=== PATIENT | female | born 1945 | race Caucasian/White ===

== ENCOUNTER → 2023-05-27 | Outpatient (CLI) | payer BC ==
[2023-05-27 13:03] LABS: INR 0.9 (<1.2); Partial Thromboplastin Time 24.9 sec (22.0-30.0)
[2023-05-27 16:53] LABS: HCT 43.2 % (37.2-46.3); HGB 13.9 d/dL (12.0-15.0); MCH 29.4 pg (27.0-32.0); MCHC 32.2 d/dL (32.0-37.0); MCV 91.3 FL (80.0-97.0); Mean Platelet Volume 9.6 FL (9.5-12.2); NRBC Per 100 WBC 0 X 10*3/uL (0.00-0.01); Platelet Count 203 X 10*3/uL (140-440); RBC 4.73 X 10*6/uL (4.10-5.20); RDW 13.6 % (11.5-14.5); WBC 11.17 X 10*3/uL (4.50-10.00)
[2023-05-27 17:11] LABS: ALT 21 U/L (8-44); AST 22 U/L (13-35); Albumin 4.5 d/dL (3.8-4.9); Albumin/Globulin Ratio 1.88 Ratio (1.60-3.17); Alkaline Phosphatase 76 U/L (41-126); Blood Urea Nitrogen 20.9 mg/dL (9.0-27.0); Calcium 9.6 mg/dL (8.7-10.3); Carbon Dioxide 24.7 mmol/L (21.6-31.8); Chloride 104 mmol/L (96-109); Globulin 2.4 d/dL (1.6-3.3); Glucose 83 mg/dL (70-110); Potassium 4.3 mmol/L (3.5-5.5); Sodium 141 mmol/L (135-145); Total Bilirubin 0.8 mg/dL (0.3-1.2); Total Protein 6.9 d/dL (6.2-8.2)
[2023-05-27 17:50] LABS: Appearance,Urine Clear (Clear); Bilirubin,Urine Negative (Negative); Blood,Urine Negative (Negative); Color,Urine Yellow (Yellow); Ketones,Urine Negative (Negative); Nitrite,Urine Negative (Negative); Specific Gravity,Urine 1.018 (1.001-1.030)
== END | disposition home or self-care (01) ==
LOC: LABPAT 11:38
PROVIDERS: ATTEND Orthopaedic Surgery Sports Medicine
DX: Z01.818 Encounter for other preprocedural examination (principal); M19.012 Primary osteoarthritis, left shoulder; R94.31 Abnormal electrocardiogram [ECG] [EKG]
CPT/HCPCS: 80053; 81003; 85027; 85610; 85730; 87070; 93005

== ENCOUNTER 2023-06-03 05:36 | Day surgery (SDC) | payer BC ==
[~2023-06-03 05:36] MED LIST: ACETAMINOPHEN TAB 500 MG TAB PO PRN; ONDANSETRON 4 MG/2 ML VIAL IVP PRN; Pre Op ABX Message 1 EACH MISC MISCELLANE ONE; TRANEXAMIC 1,000 MG/100ML-NACL 1,000 MG in SALINE 1 100ML.BAG IVPB PRN
[2023-06-03] MEDS ORDERED: ONDANSETRON 4 MG/2 ML VIAL IVP ONE ×2 (05:50→06:51)
[2023-06-03] MEDS ORDERED: DEXAMETHASONE SOD PHOSPHATE 4 MG/ML 1 ML VIAL IV ONE (05:50)
[2023-06-03] MEDS ORDERED: LACTATED RINGERS 1,000 ML IV ONE (05:55)
[2023-06-03] MEDS ORDERED: DEXAMETHASONE SOD PHOSPHATE 4 MG/ML 1 ML VIAL IVP ONE (06:51)
[2023-06-03] MEDS ORDERED: HYDROmorphone 0.5 MG/0.5 ML SYRINGE IVP PRN ×4 (07:00→07:21)
[2023-06-03] MEDS ORDERED: ONDANSETRON 4 MG/2 ML VIAL IVP PRN (07:21)
[2023-06-03] MEDS ORDERED: SENNOSIDES-DOCUSATE SODIUM 1 EACH TAB PO PRN (07:21)
[2023-06-03] MEDS ORDERED: HYDROcodone/APAP 7.5-325MG 1 EACH TAB PO PRN (07:25)
[2023-06-03] MEDS ORDERED: VANCOMYCIN 1,000 MG VIAL MISCELLANE ONE (07:44)
[2023-06-03] MEDS ORDERED: ceFAZolin 1,000 MG in SODIUM CHLORIDE 0.9% 1,000 ML IRRIGATION ONE (07:45)
[2023-06-03] MEDS ORDERED: droPERidol 5 MG/2 ML VIAL IVP ONE (09:18)
[2023-06-03] MEDS: LACTATED RINGERS 1,000 ML IV SCH ×3 (09:23→21:49)
--- NOTE | 2023-06-03 10:02 | OP ---
OPERATIVE REPORT DATE OF SERVICE : 06/03/2023 MEAT HANGER: Steve Quintana PA-C PREOPERATIVE DIAGNOSIS: Left shoulder rotator cuff arthropathy. POSTOPERATIVE DIAGNOSIS: Left shoulder rotator cuff arthropathy. PROCEDURE PERFORMED: Left reverse total shoulder arthroplasty. ANESTHESIA: General. ESTIMATED BLOOD LOSS: 100 mL. DRAINS: None. COMPLICATIONS: None apparent. DISPOSITION: Postanesthesia care unit. INDICATIONS: Mrs. Villela is a very pleasant 78-year-old female with longstanding left shoulder pain. Workup including x-rays and an MRI revealed advanced rotator cuff arthropathy of the left shoulder. At this point, it was felt that she has failed conservative management, and she would like to proceed with operative intervention. The risks of the procedure were discussed with her in detail. These risks include but are not limited to, risk of infection, nerve damage, bleeding, pain, instability in the shoulder, loosening of the implants, and deep infection. There is also a small risk of deep vein thrombosis which could lead to fatal pulmonary embolism. The patient understood these risks. All of her questions with regard to the risks of procedure were answered to her satisfaction. An appropriate informed consent was obtained. DESCRIPTION OF THE PROCEDURE: The patient was identified in the preoperative holding area. Surgical site was marked by both the patient and myself. She was given 2 g of Ancef IV for prophylactic purposes. She was then transported to the operative suite. She was placed supine on the operating room table. A general anesthetic was then administered and dosed per the Anesthesia Department without apparent complication. Examination under anesthesia was then performed of the left shoulder. She had elevation to 120 degrees. External rotation to side was to 30 degrees. She was then placed into the beach chair position well padded in preparation for surgery. Great care was taken to ensure that her cervical spine was in neutral alignment, well padded and maintained that way throughout the operative procedure. Great care was also taken to ensure that her legs were appropriately padded as well. The patient's left upper extremity was then prepped and draped in the usual sterile fashion. A standard surgical pause was undertaken to ensure that we were operating the correct site and that appropriate preoperative antibiotics had been given. All staff in the room were in agreement, and we proceeded. The acromion, AC joint, clavicle, and coracoid were marked with a surgical pen. A planned incision starting at the level of the clavicle and extending distally over the deltopectoral interval approximately 1 cm lateral to the coracoid was marked with a surgical pen. The incision was then made with a 10 blade scalpel. Dissection was carried down sharply to the deltoid fascia. The deltopectoral interval was identified at the level of the clavicle. A small band retractor was then placed under the proximal deltoid. I then released the deltoid fascia on the lateral aspect of the cephalic vein. The vein was then left in its bed medially. The cephalic vein was protected throughout the entire case. I then identified the clavipectoral fascia. This was incised proximally to the level of the coracoacromial ligament. The coracoacromial ligament was then left intact. I then used my finger to spread the interval between the conjoint tendon and the subscapularis. I felt for the axillary nerve which was readily palpable. I then cleared the subacromial and subdeltoid spaces of bursal and scar tissue. I then utilized a Mazariegos retractor to hold the deltoid and expose the humeral head. I then proceeded to release the subscapularis from the anterior inferior shoulder capsule. The rotator cuff was inspected. It was found to be intact. The rotator interval was identified. The course of the biceps tendon was also identified. I then released the rotator interval. It was released at the base of the coracoid and then out laterally. The subscapularis and capsule released intertendinously. The subscapularis and capsule release extended distally in a lazy-S fashion approximately 1 cm medial to the biceps tendon. I then continued to release the capsule along the inferior neck in a vertical fashion to approximately the 6 o'clock position. Great care was taken to ensure that the capsule was always visualized as it was released as to avoid injuring the axillary nerve. I then brought a Setele instrument repair supervisor with the arm externally rotated and abducted. I continued to release the capsule inferomedially to approximately the 4 o'clock position. I then proceeded with preparation of the humerus. I removed all the goat's tate osteophytes. I then removed the subchondral plate from the superior aspect of the humeral head using a large rongeur. I then used a starting reamer to gain access to the humeral canal. This was 1 cm medial to the prior rotator cuff insertion 1 cm posterior to the bicipital groove. I then prepared the humeral canal with hand reaming. I started with a 6 mm reamer and incrementally progressed until firm resistance was encountered at 12 mm. The reamer handle was then left in place. I then utilized a humeral resection guide set at 30 degrees of retrotorsion. The cutting block was then set 1 mm above the prior insertion of the rotator cuff. I then proceeded to osteotomize the humeral head with an oscillating saw. I removed the resection guide and then completed the osteotomy. I then proceeded with trial stem placement. I started with a 6 mm broach and incrementally increased up to a 12 mm broach. The 12 mm broach was then left in place. The superior aspect of the humeral head was completely devoid of rotator cuff. The decision was made to proceed with a reverse total shoulder arthroplasty. At this point, I did release the biceps tendon. This was tenotomized at the level of the superior labrum. A bone hook was then used to pull the humerus out laterally. I inspected the joint for any loose bodies. The condition of the cuff was again inspected. Again, she had a large retracted tear of the supraspinatus and infraspinatus. The Bhattman retractor was then placed on the posterior glenoid rim. The arm was then placed in approximately 80 degrees of abduction and in slight flexion on the Steele stand. I then proceeded to remove the hypertrophic labrum to definitively identify the actual glenoid. I then utilized the mini base plate guide. This was placed in the center of the glenoid. The pin was then placed in the center of the glenoid in approximately 10 degrees of inferior tilt. I then utilized the mini base plate reamer. As minimal reaming was done as possible as to preserve as much subchondral bone as possible. I then had the software support representative open a mini base plate. This was then impacted into the real glenoid. I then placed a 25 mm central screw. This screw had a fairly good bite. I was able to gently rotate the scapula through the screwdriver when the screw was fully seated. I then proceeded to place the peripheral locking screws. The inferior screw was a 25 mm screw. The anterior, superior, and posterior screws were all 15 mm locking screws. I then had the software support representative open a standard 36 mm glenosphere. I did preferentially slightly offset it inferiorly. The Arevalo taper was dried on both the base plate and the stem, and then the glenosphere was then impacted onto a dry Arevalo taper of the base plate. I then proceeded to trial with the real glenosphere in. I started with a standard tray and standard poly. The shoulder was then reduced. It was a mildly difficult reduction. The shoulder was stable throughout a full range of motion. The conjoint tendon did not have any undue tension. I did feel for the axillary nerve at this point, which was readily palpable and intact. The shoulder was again redislocated. I made the decision to proceed with standard tray and standard poly. The wound was then thoroughly irrigated with sterile saline solution with antibiotic added via pulse lavage. I also utilized the Irrisept antiseptic solution at this point. The software support representative opened a [employer] size 12 mini stem, a standard tray, and a standard poly for a 36 mm glenosphere. The stem was then impacted into the proximal humerus in approximately 30 degrees of retrotorsion. The Arevalo taper was dried, and then the standard tray poly was then impacted onto the real stem again onto a dry Arevalo taper. The shoulder was then reduced. Again, it was a mildly difficult reduction. It was stable throughout a full range of motion. The axillary nerve was palpated and intact. At this point in time, we proceeded with closure. The wound was again thoroughly irrigated with sterile saline solution with antibiotic added via pulse lavage. I utilized remaining Irrisept solution. Approximately 500 mg of vancomycin powder was then placed deep. The deltopectoral interval was reapproximated with 0 Vicryl interrupted suture. The subcutaneous tissue was irrigated with sterile saline solution with antibiotic added via pulse lavage. The remaining 500 mg of vancomycin powder was then placed subcutaneously. The subcutaneous tissue was then closed with 2-0 Vicryl interrupted suture, and the skin was closed with a running 3-0 Quill suture. Dermabond was applied the incision. Sterile dressing was applied, and the patient's left upper extremity was placed in a standard sling. All sponge and needle counts were deemed correct prior to closure. The patient tolerated the procedure without apparent complication. She was transferred to the recovery room in stable condition. MMODL / IJN: [id number] /
--- NOTE | 2023-06-03 15:15 | XR ---
EXAMINATION TYPE: XR shoulder limited LT DATE OF EXAM: 06/03/2023 3:10 PM INDICATION: Patient age:Female; 78 years old; Reason for study: post op; COMPARISON: None TECHNIQUE: The left shoulder was examined in single frontal projection. FINDINGS: Postsurgical changes from left shoulder arthroplasty with glenoid component and proximal humerus comp onent. Hardware appears intact with appropriate alignment on this single view. There is associated so ft tissue gas and edema. Visualized portions of the chest are unremarkable. No acute fracture or disl ocation. IMPRESSION: Postsurgical changes from left shoulder arthroplasty. Hardware appears intact with appropriate alignm ent on this single view.
[2023-06-03] MEDS: HYDROcodone/APAP 7.5-325MG 1 EACH TAB PO PRN (19:30)
[2023-06-03] MEDS: diphenhydrAMINE 25 MG CAP PO PRN (23:16)
[2023-06-03] MEDS ORDERED: SERTRALINE 100 MG TAB PO PRN (23:19)
--- NOTE | 2023-06-03 23:23 | P.CONS ---
History of Present Illness - Reason for Consult Consult date: 06/03/23 - History of Present Illness Patient is a 78-year-old female with a PMH of hypertension, rheumatoid arthritis, cervical spinal stenosis, and history of migraines who was admitted for elective left shoulder arthroplasty. The patient underwent the procedure earlier today and was seen postoperatively on the surgical unit. She reported ongoing 7 out of 10 left shoulder pain. She denied experiencing chest discomfort, shortness of breath, fever, chills, cough, nausea, vomiting, abdominal, diarrhea. Reports compliance with her medications at home. Review of systems: Pertinent positives and negatives as discussed in HPI, a complete review of systems was performed and all other systems are negative. Physical examination: Vital signs reviewed General: non toxic, no distress, appears at stated age, normal weight Derm: no unusual rashes/lesions, warm Head: atraumatic, normocephalic, symmetric Eyes: EOMI, no lid lag, anicteric sclera, pupils equal round reactive to light ENT: Nose and ears atraumatic Neck: No cervical lymphadenopathy, trachea midline, supple Mouth: no lip lesion, mucus membranes moist Cardiovascular: S1S2 reg, no murmur, positive dorsalis pedis pulse bilateral, no edema Lungs: CTA bilateral, no rhonchi, no rales, no accessory muscle use Abdominal: soft, nontender to palpation, no guarding Ext: muscle strength 5 out of 5 in all extremities grossly except left upper extremity post surgically, left shoulder dressing in place, no gross muscle atrophy, no contractures, Neuro: CN II-XI grossly intact, no gross focal neuro deficits Psych: Alert, oriented, appropriate affect Assessment: Chronic conditions: Rheumatoid arthritis, hypertension, cervical spinal stenosis, history of migraines Status post left shoulder arthroplasty Data Review: No laboratory evaluation performed Plan: Continue home medications Defer management of pain control and DVT prophylaxis to primary surgery service Past Medical History Past Medical History: GERD/Reflux, Hypertension, Osteoarthritis (OA), Renal Disease, Rheumatoid Arthritis (RA), Skin Disorder, Supraventricular Tachycardia (SVT) Additional Past Medical History / Comment(s): CKD stage 3, frequent chronic hives, takes diltiazem for SVT, hx. migraines, resolving right leg cellulitis above ankle & 6 inches above that-scabbed over-taking A/B, sees Dr. Neal today to evaluate History of Any Multi-Drug Resistant Organisms: None Reported Past Surgical History: Back Surgery, Heart Catheterization, Joint Replacement Additional Past Surgical History / Comment(s): ovarian cysts removed, several D & C's, ryan knee's replaced, right hip replaced, right & left basal thumb joint replaced, ryan CTS, left thumb joint surg, lower back laser surg. Past Anesthesia/Blood Transfusion Reactions: Postoperative Nausea & Vomiting (PONV) Additional Past Anesthesia/Blood Transfusion Reaction / Comm: no hx. transfusion reaction Past Psychological History: Anxiety Smoking Status: Former smoker Past Alcohol Use History: Occasional Additional Past Alcohol Use History / Comment(s): quit smoking 1966, only occasionally smoked for 4 yrs. during college Past Drug Use History: None Reported - Past Family History Mother Family Medical History: Deep Vein Thrombosis (DVT) Medications and Allergies Home Medications Medication Instructions Recorded Confirmed Type Amoxic-Pot Clav 875-125Mg 1 tab PO Q12HR 06/01/23 06/03/23 History [Augmentin 875-125] Cetirizine HCl [Zyrtec] 10 mg PO DAILY 06/01/23 06/03/23 History Cranberry Fruit Extract [Cranberry] 1 tab PO DAILY 06/01/23 06/03/23 History Cyanocobalamin (Vitamin B-12) 1,000 mcg PO DAILY 06/01/23 06/03/23 History [Vitamin B-12] Estradiol Cream [Estrace Cream 1 gm VAGINAL MOWEFR 06/01/23 06/03/23 History 0.01%] HYDROcodone/APAP 5-325MG [[place] 1 tab PO Q8H PRN 06/01/23 06/03/23 History 5-325] Ketorolac Tromethamine 10 mg PO DIRECTED PRN 06/01/23 06/03/23 History LORazepam [Ativan] 0.5 mg PO DIRECTED PRN 06/01/23 06/03/23 History Losartan Potassium 50 mg PO DAILY 06/01/23 06/03/23 History Ondansetron [Zofran] 4 mg PO Q12HR PRN 06/01/23 06/03/23 History Pantoprazole [Protonix] 40 mg PO DAILY 06/01/23 06/03/23 History Sertraline [Zoloft] 100 mg PO DAILY PRN 06/01/23 06/03/23 History Spironolactone [Aldactone] 25 mg PO DAILY 06/01/23 06/03/23 History Zolpidem [Ambien] 5 mg PO HS PRN 06/01/23 06/03/23 History dilTIAZem HCL [dilTIAZem HCL 24Hr 360 mg PO DAILY 06/01/23 06/03/23 History ER (Tiazac)] traMADol HCL 50 mg PO Q6H PRN 06/01/23 06/03/23 History Docusate [Colace] 100 mg PO BID #60 capsule 06/03/23 Rx Doxycycline Hyclate 100 mg PO BID #10 tab 06/03/23 Rx Ondansetron [Zofran] 4 mg PO Q8HR PRN #21 tab 06/03/23 Rx Allergies Allergy/AdvReac Type Severity Reaction Status Date / Time aspirin Allergy Rash/Hives Verified 06/03/23 05:58 atenolol [From Tenormin] Allergy Rash/Hives Verified 06/03/23 05:58 enalaprilat [From Vasotec] Allergy Rash/Hives Verified 06/03/23 05:58 gabapentin [From Neurontin] Allergy Rash/Hives Verified 06/03/23 05:58 hydralazine Allergy lupus Verified 06/03/23 05:58 symptoms hydrochlorothiazide Allergy Rash/Hives Verified 06/03/23 05:58 [From Hyzaar] losartan [From Hyzaar] Allergy Rash/Hives Verified 06/03/23 05:58 meloxicam [From Mobic] Allergy Rash/Hives Verified 06/03/23 05:58 methocarbamol [From Robaxin] Allergy Rash/Hives Verified 06/03/23 05:58 pregabalin [From Lyrica] Allergy Rash/Hives Verified 06/03/23 05:58 sulfamethoxazole Allergy GI Verified 06/03/23 05:58 [From Bactrim] upset,headache,nausea/vomiting trimethoprim [From Bactrim] Allergy GI Verified 06/03/23 05:58 upset,headache,nausea/vomiting vancomycin Allergy Rash/Hives Verified 06/03/23 05:58 cephalexin [From Keflex] AdvReac Nausea & Verified 06/03/23 05:58 Vomiting,GI upset,headache cyclobenzaprine AdvReac pins & Verified 06/03/23 05:58 [From Flexeril] needles sensation all over levofloxacin [From Levaquin] AdvReac tendonitis Verified 06/03/23 05:58 Physical Exam Vitals: Vital Signs Temp Pulse Pulse Resp BP Pulse Ox 06/03/23 18:58 98.6 F 78 16 134/68 95 06/03/23 14:00 98.4 F 68 18 118/69 95 06/03/23 12:30 67 16 147/68 94 L 06/03/23 11:30 66 16 156/72 94 L 06/03/23 11:00 63 16 153/69 94 L 06/03/23 10:30 62 16 162/72 93 L 06/03/23 10:00 59 L 16 162/74 93 L 06/03/23 09:45 59 L 16 164/74 96 06/03/23 09:30 62 16 172/77 96 06/03/23 09:15 64 16 174/79 96 06/03/23 09:01 97.2 F L 73 16 132/86 96 06/03/23 06:50 64 16 133/77 97 06/03/23 06:30 98 F 64 16 146/76 96 Intake and Output 06/03/23 06/03/23 06/04/23 14:59 22:59 06:59 Intake Total 1151 Output Total 100 Balance 1051 Intake: IV 1151 Output: Estimated Blood Loss 100 Other: # Voids 3 Weight 78.6 kg
[2023-06-04] MEDS: LACTATED RINGERS 1,000 ML IV SCH ×2 (04:17→06:43)
[2023-06-04] MEDS: HYDROcodone/APAP 7.5-325MG 1 EACH TAB PO PRN ×3 (04:46→17:10)
[2023-06-04] MEDS: PANTOPRAZOLE 40 MG TABLET PO SCH ×2 (06:42→17:09)
--- NOTE | 2023-06-04 06:50 | P.ANPRN ---
Procedure Note - Anesthesia - Nerve Block Performed Left Interscalene Single Time Out Performed: Yes Date of Procedure: 06/03/23 Procedure Start Time: :30 Procedure Stop Time: :35 Location of Patient: PreOp Indication: Acute Post-Operative Pain, Requested by Surgeon Sedation Type: Sedate with meaningful contact maintained Preparation: Sterile Prep Position: Supine Needle Types: Pajunk Ultrasound used to visualize needle placement: Yes Ultrasound used to observe medication spread: Yes Blood Aspirated: No Pain Paresthesia on Injection Noted: No Resistance on Injection: Normal Image Stored and Saved: Yes Events: Uneventful and Well Tolerated (ropi .5% 20cc plus dexamethasone 4mg)
[2023-06-04] MEDS: DILTIAZEM CD 180 MG CAP.ER.24H PO SCH (08:23)
[2023-06-04] MEDS: SPIRONOLACTONE 25 MG TAB PO SCH (08:23)
[2023-06-04 11:08] LABS: Basophils # (A) 0.02 X 10*3/uL (0.00-0.10); Basophils % (A) 0.1 %; Eosinophils # (A) 0 X 10*3/uL (0.04-0.35); Eosinophils % (A) 0 %; HCT 36.8 % (37.2-46.3); HGB 12.1 d/dL (12.0-15.0); Lymphocytes # (A) 0.97 X 10*3/uL (0.90-5.00); Lymphocytes % (A) 6.5 %; MCH 29.7 pg (27.0-32.0); MCHC 32.9 d/dL (32.0-37.0); MCV 90.4 FL (80.0-97.0); Mean Platelet Volume 9.7 FL (9.5-12.2); Monocytes # (A) 1.03 X 10*3/uL (0.20-1.00); Monocytes % (A) 6.9 %; NRBC Per 100 WBC 0 X 10*3/uL (0.00-0.01); Neutrophils % (A) 85.8 %; Platelet Count 213 X 10*3/uL (140-440); RBC 4.07 X 10*6/uL (4.10-5.20); RDW 13.3 % (11.5-14.5); WBC 14.83 X 10*3/uL (4.50-10.00)
--- NOTE | 2023-06-04 13:14 | P.PN ---
Subjective Progress Note Date: 06/04/23 Principal diagnosis: Reverse Left TSA Patient is seen at bedside this morning. She is postop day #1 from reverse left total shoulder arthroplasty. She has pain at the surgical site as expected but denies any new complaints. She denies numbness, tingling or calf pain. Review of systems is negative for fever, chills, chest pain, shortness of breath or other Objective - Vital Signs Vital signs: Vital Signs Temp 98.1 F 06/04/23 07:31 Pulse 81 06/04/23 07:31 Resp 18 06/04/23 07:31 BP 137/83 06/04/23 07:31 Pulse Ox 95 06/04/23 07:31 FiO2 Intake & Output 06/03/23 06/04/23 06/04/23 18:59 06:59 18:59 Intake Total 1151 Output Total 100 Balance 1051 Weight 78.6 kg Intake: IV 1151 Output: Estimated Blood Loss 100 Other: # Voids 3 2 - Exam Inspection reveals a benign surgical wound. There is no active bleeding or drainage. Neurovascular status is intact throughout the upper extremity with motor and sensation fully intact. Calf is soft and nontender. 2+ radial pedis pulse and less than 2 second cap refill is present. - Constitutional General appearance: Present: no acute distress - Labs CBC & Chem 7: 06/04/23 06:05 Labs: Abnormal Lab Results - Last 24 Hours (Table) 06/04/23 Range/Units 06:05 WBC 14.83 H (4.50-10.00) X 10*3/uL RBC 4.07 L (4.10-5.20) X 10*6/uL Hct 36.8 L (37.2-46.3) % Neutrophils # 12.70 H (1.80-7.70) X 10*3/uL Monocytes # 1.03 H (0.20-1.00) X 10*3/uL Eosinophils # 0 L (0.04-0.35) X 10*3/uL Assessment and Plan (1) Osteoarthritis of left shoulder Narrative/Plan: She will continue with routine postop orthopedic protocol including pain management, wound care, DVT prophylaxis and medical management. Expect that she will transfer to home tomorrow Current Visit: Yes Status: Acute Code(s): M19.012 - PRIMARY OSTEOARTHRITIS, LEFT SHOULDER SNOMED Code(s): 910447409323673 Time with Patient: Less than 30
--- NOTE | 2023-06-04 19:54 | P.PN ---
Subjective Progress Note Date: 06/04/23 (delayed charting seen at 11am) Patient is a 70-year-old female with a past medical history of cervical stenosis, hypertension, chronic kidney disease stage III, asked the team, rheumatoid arthritis, GERD, migraines, and recent right lower extremity cellulitis who presented to the hospital for elective left total shoulder arthroplasty. Patient seen and examined at bedside. Doing well. Pain is well controlled. Wants to go home. Vital signs reviewed General: nontoxic, no distress, appears at stated age Cardiovascular: S1S2 reg, no murmur, positive posterior tibial pulse bilateral, Lungs: CTA bilateral, no rhonchi, no rales , no accessory muscle use Ext: Left arm in sling Neuro: CN II-XI grossly intact, no focal neuro deficits Psych: Alert, oriented, appropriate affect Assessment/Plan: 78-year-old female status post left total shoulder arthroplasty Hypertension Chronic kidney disease stage III History of SVT -Resume losartan 50 mg daily -Continue with spironolactone 25 mg daily -Continue with Cardizem 360 mg daily - follow BP Imaging: None Data Review: CBC which was marked. Her white blood cell count 14.83 Thank you for allowing us to participate in the care of this pleasant patient. Do not hesitate to contact us with questions. Someone can be reached from the [facility] hospitalist group all hours of the day at [phone] or via [employer]. This dictation was prepared using [employer] voice recognition software. Though every attempt is made to correct errors during dictation some may still exist. Objective - Vital Signs Vital signs: Vital Signs Temp 97.6 F 06/04/23 13:34 Pulse 90 06/04/23 13:34 Resp 19 06/04/23 13:34 BP 133/76 06/04/23 13:34 Pulse Ox 95 06/04/23 13:34 FiO2 Intake & Output 06/04/23 06/04/23 06/05/23 06:59 18:59 06:59 Other: # Voids 2 4 - Labs CBC & Chem 7: 06/04/23 06:05 Labs: Abnormal Lab Results - Last 24 Hours (Table) 06/04/23 Range/Units 06:05 WBC 14.83 H (4.50-10.00) X 10*3/uL RBC 4.07 L (4.10-5.20) X 10*6/uL Hct 36.8 L (37.2-46.3) % Neutrophils # 12.70 H (1.80-7.70) X 10*3/uL Monocytes # 1.03 H (0.20-1.00) X 10*3/uL Eosinophils # 0 L (0.04-0.35) X 10*3/uL
[2023-06-04] MEDS: diphenhydrAMINE 25 MG CAP PO PRN (21:46)
[2023-06-05 01:24] VITALS: PULSE 75
[2023-06-05] MEDS: LACTATED RINGERS 1,000 ML IV SCH ×4 (01:56→07:57)
[2023-06-05] MEDS: HYDROcodone/APAP 7.5-325MG 1 EACH TAB PO PRN (03:53)
[2023-06-05 05:06] LABS: HCT 38.1 % (34.0-46.0); HGB 12.4 gm/dL (11.4-16.0); MCH 29.5 pg (25.0-35.0); MCHC 32.6 g/dL (31.0-37.0); MCV 90.6 fL (80.0-100.0); Mean Platelet Volume 7.7; Platelet Count 194 k/uL (150-450); RDW 13.8 % (11.5-15.5)
[2023-06-05 05:15] LABS: African American GFR (CKD) >90 (>60 ml/min/1.73 sqM); Anion Gap 9 mmol/L; Blood Urea Nitrogen 20 mg/dL (7-17); Calcium 9.2 mg/dL (8.4-10.2); Carbon Dioxide 26 mmol/L (22-30); Chloride 105 mmol/L (98-107); Glucose 89 mg/dL (74-99); Non-African American GFR(CKD) 81 (>60 ml/min/1.73 sqM); Sodium 140 mmol/L (137-145)
[2023-06-05] MEDS: DILTIAZEM CD 180 MG CAP.ER.24H PO SCH (07:56)
[2023-06-05] MEDS: PANTOPRAZOLE 40 MG TABLET PO SCH (07:57)
[2023-06-05] MEDS: SPIRONOLACTONE 25 MG TAB PO SCH (07:57)
--- NOTE | 2023-06-05 08:30 | P.DS ---
Providers Date of admission: 06/04/2023 Expected date of discharge: 06/05/23 Attending physician: Jonnie Neal Consults: 06/03/23 07:21 Consult Physician Routine Consulting Provider: Karina Dacosta Consult Reason/Comments: post op medical management Do you want consulting provider notified?: Yes Primary care physician: Joan Johnson - Discharge Diagnosis(es) (1) Rotator cuff arthropathy of left shoulder Current Visit: Yes Status: Acute (2) Left shoulder pain Current Visit: Yes Status: Acute (3) Status post total replacement of left shoulder Current Visit: Yes Status: Acute (4) Heart disease Current Visit: Yes Status: Acute (5) Hypertension Current Visit: Yes Status: Acute (6) Rheumatoid arthritis Current Visit: Yes Status: Acute (7) History of atrial tachycardia Current Visit: Yes Status: Acute Hospital Course: This is a pleasant 78-year-old female who presented with left rotator cuff arthropathy who failed outpatient conservative therapy. She was admitted for a left reverse total shoulder arthroplasty. The patient tolerated the procedure well and did well postoperatively. Her dressing over her left shoulder is clean, dry, and intact. She has been utilizing a sling for the left upper extremity. She is avoiding heavy lifting and any increased activities with the left upper extremity. She has good range of motion of her left wrist and fingers of the left hand. She is neurovascularly intact. She is happy with her progress thus far postoperatively. She feels she is ready for discharge today. Condition on day of discharge stable. Patient will be discharged home. Patient was cleared preoperatively for surgery by Dr. Johnson. Patient currently denies any nausea, vomiting, fever, or chills. Patient is eating and voiding freely without difficulty. She will remain nonweightbearing with the left upper extremity. She'll continue to maintain a sling. She did keep the incision site clean, dry, and intact. Surgical site remains clean, dry, and intact, she may shower without a dressing intact after 3 days. She'll plan to follow up with Dr. Neal in outpatient setting for further treatment and evaluation at [facility]. MAPS was previously reviewed. An "Opiod Start Talking" Form has been signed and placed in the patient's chart. A prescription has been written for hydrocodone 7.5 mg, 1-2 tabs every 6 hours as needed for acute pain, dispensed #42. She is also given prescriptions for Zofran, Colace, and doxycycline. Patient's other medical diagnoses include hypertension, heart disease, history of atrial tachycardia, and rheumatoid arthritis. Physical Exam on day of discharge: Patient is awake, alert, and oriented 3 Vital signs stable Good chest excursion with deep inspiration and expiration Dressing over the left shoulder is clean, dry, and intact; no active drainage Some bruising around the left shoulder at the inferior aspect Sling is intact over the left upper extremity Neurovascular intact left upper extremity Patient is able to have active range of motion of the left wrist and fingers of the left heel without significant difficulty Procedures: Reverse left total shoulder arthroplasty Patient Condition at Discharge: Stable Plan - Discharge Summary Discharge Rx Participant: Yes New Discharge Prescriptions: New Ondansetron [Zofran] 4 mg PO Q8HR PRN #21 tab PRN Reason: Nausea Docusate [Colace] 100 mg PO BID #60 capsule Doxycycline Hyclate 100 mg PO BID #10 tab HYDROcodone/APAP 7.5-325MG [[place] 7.5-325] 1 - 2 each PO Q6HR PRN #42 tab PRN Reason: Pain Continue Pantoprazole [Protonix] 40 mg PO DAILY Losartan Potassium 50 mg PO DAILY Spironolactone [Aldactone] 25 mg PO DAILY Sertraline [Zoloft] 100 mg PO DAILY PRN PRN Reason: Anxiety Estradiol Cream [Estrace Cream 0.01%] 1 gm VAGINAL MOWEFR Cetirizine HCl [Zyrtec] 10 mg PO DAILY dilTIAZem HCL [dilTIAZem HCL 24Hr ER (Tiazac)] 360 mg PO DAILY Cyanocobalamin (Vitamin B-12) [Vitamin B-12] 1,000 mcg PO DAILY Cranberry Fruit Extract [Cranberry] 1 tab PO DAILY Discontinued LORazepam [Ativan] 0.5 mg PO DIRECTED PRN PRN Reason: Anxiety Zolpidem [Ambien] 5 mg PO HS PRN PRN Reason: Insomnia traMADol HCL 50 mg PO Q6H PRN PRN Reason: Pain Ketorolac Tromethamine 10 mg PO DIRECTED PRN PRN Reason: Migraine Headache No Action HYDROcodone/APAP 5-325MG [[place] 5-325] 1 tab PO Q8H PRN PRN Reason: Pain Amoxic-Pot Clav 875-125Mg [Augmentin 875-125] 1 tab PO Q12HR Ondansetron [Zofran] 4 mg PO Q12HR PRN PRN Reason: Nausea Discharge Medication List Amoxic-Pot Clav 875-125Mg [Augmentin 875-125] 1 tab PO Q12HR 06/01/23 [History] Cetirizine HCl [Zyrtec] 10 mg PO DAILY 06/01/23 [History] Cranberry Fruit Extract [Cranberry] 1 tab PO DAILY 06/01/23 [History] Cyanocobalamin (Vitamin B-12) [Vitamin B-12] 1,000 mcg PO DAILY 06/01/23 [History] Estradiol Cream [Estrace Cream 0.01%] 1 gm VAGINAL MOWEFR 06/01/23 [History] HYDROcodone/APAP 5-325MG [[place] 5-325] 1 tab PO Q8H PRN 06/01/23 [History] Losartan Potassium 50 mg PO DAILY 06/01/23 [History] Ondansetron [Zofran] 4 mg PO Q12HR PRN 06/01/23 [History] Pantoprazole [Protonix] 40 mg PO DAILY 06/01/23 [History] Sertraline [Zoloft] 100 mg PO DAILY PRN 06/01/23 [History] Spironolactone [Aldactone] 25 mg PO DAILY 06/01/23 [History] dilTIAZem HCL [dilTIAZem HCL 24Hr ER (Tiazac)] 360 mg PO DAILY 06/01/23 [History] Docusate [Colace] 100 mg PO BID #60 capsule 06/03/23 [Rx] Doxycycline Hyclate 100 mg PO BID #10 tab 06/03/23 [Rx] Ondansetron [Zofran] 4 mg PO Q8HR PRN #21 tab 06/03/23 [Rx] HYDROcodone/APAP 7.5-325MG [Plevna 7.5-325] 1 - 2 each PO Q6HR PRN #42 tab 06/04/23 [Rx] Follow up Appointment(s)/Referral(s): Joan Johnson DO [Primary Care Provider] - 3 Days Jonnie Neal MD [STAFF PHYSICIAN] - 10 Days Patient Instructions/Handouts: How to Use an Incentive Spirometer (DC), Joint Replacement Surgery (DC) Activity/Diet/Wound Care/Special Instructions: May shower after 3 days if no bleeding Keep wound clean and dry Maintain sling Take meds as directed F/U with Dr. Neal in office Non Weight Bearing Discharge Disposition: HOME SELF-CARE
[2023-06-05] MEDS ORDERED: LOSARTAN 50 MG TAB PO SCH (09:00)
[2023-06-05 09:03] VITALS: BP 165/76; RESP 14; TEMP 98.1
--- NOTE | 2023-06-05 11:19 | P.PN ---
Subjective Progress Note Date: 06/05/23 Patient is a 70-year-old female with a past medical history of cervical stenosis, hypertension, chronic kidney disease stage III, asked the team, rheumatoid arthritis, GERD, migraines, and recent right lower extremity cellulitis who presented to the hospital for elective left total shoulder arthroplasty. Patient seen and examined at bedside. Doing well. Completed her augmentin pror to admission. told to monitor for return of redness or wound break down. Vital signs reviewed General: nontoxic, no distress, appears at stated age Cardiovascular: S1S2 reg, no murmur, positive posterior tibial pulse bilateral, Lungs: CTA bilateral, no rhonchi, no rales , no accessory muscle use Ext: Left arm in sling Neuro: CN II-XI grossly intact, no focal neuro deficits Psych: Alert, oriented, appropriate affect Assessment/Plan: 78-year-old female status post left total shoulder arthroplasty Hypertension Chronic kidney disease stage III Leukoctyosis, reactive and improved History of SVT -Resume losartan 50 mg daily -Continue with spironolactone 25 mg daily -Continue with Cardizem 360 mg daily - follow BP Recent cellulitis of the R LE - s/p abx, asked patient to monitor as there are 2 healing wounds. - Medically optimized for discharge at the discretion of orthopedic surgery Imaging: None Data Review: Laboratory from today include CBC and basic metabolic profile which are remarkable for white blood count of 11 and BUN 20 Thank you for allowing us to participate in the care of this pleasant patient. Do not hesitate to contact us with questions. Someone can be reached from the [facility] hospitalist group all hours of the day at [phone] or via perfect serve. This dictation was prepared using [employer] voice recognition software. Though every attempt is made to correct errors during dictation some may still exist. Objective - Vital Signs Vital signs: Vital Signs Temp 98.1 F 06/05/23 07:00 Pulse 75 06/05/23 07:00 Resp 14 06/05/23 07:00 BP 165/76 06/05/23 07:00 Pulse Ox 96 06/05/23 07:00 FiO2 Intake & Output 06/04/23 06/05/23 06/05/23 18:59 06:59 18:59 Output Total 2 Balance -2 Output: Urine 2 Other: # Voids 4 - Labs CBC & Chem 7: 06/05/23 04:12 06/05/23 04:12 Labs: Abnormal Lab Results - Last 24 Hours (Table) 06/05/23 06/05/23 Range/Units 04:12 04:12 WBC 11.0 H (3.8-10.6) k/uL BUN 20 H (7-17) mg/dL
== END 2023-06-05 12:10 | disposition home or self-care (01) ==
LOC: OR 05:36 → 4SSUR 09:01 → OR 06-05 12:10
PROVIDERS: ATTEND Orthopaedic Surgery Sports Medicine
DX: M19.012 Primary osteoarthritis, left shoulder (principal); I12.9 Hypertensive chronic kidney disease with stage 1 through stage 4 chronic kidney disease, or unspecified chronic kidney disease; N18.30 Chronic kidney disease, stage 3 unspecified; M06.9 Rheumatoid arthritis, unspecified; I47.10 Supraventricular tachycardia, unspecified; K21.9 Gastro-esophageal reflux disease without esophagitis; F41.9 Anxiety disorder, unspecified; Z79.899 Other long term (current) drug therapy; Z87.891 Personal history of nicotine dependence; Z88.1 Allergy status to other antibiotic agents; Z88.2 Allergy status to sulfonamides; Z88.8 Allergy status to other drugs, medicaments and biological substances; Z96.612 Presence of left artificial shoulder joint
CPT/HCPCS: 64415; 80048; 85025; 85027; 73020; 23472; C1776; J3370; J1100; J0690 ×3; J2405; J1170; J1790

== ENCOUNTER → 2023-10-22 | Outpatient (CLI) | payer BC ==
--- NOTE | 2023-10-23 17:33 | CT ---
EXAMINATION TYPE: CT shoulder RT wo con CT DLP: 364.4 mGycm, Automated exposure control for dose reduction was used. DATE OF EXAM: 10/22/2023 10:28 AM COMPARISON: Plain film 06/03/2023. CLINICAL INDICATION:Female, 78 years old with history of 3 D Reconstruction; M19.011 PRIMARY OSTEOART HRITIS; PHH, right shoulder pain and cyst bb placed over area of interest TECHNIQUE: Axial images were obtained of the CT shoulder RT wo con, Additional coronal and sagittal r eformatted images and soft tissue and bone window were obtained for review. 3-D reconstruction was cr eated on a separate workstation. Contrast used: mL of , (None if empty) Oral contrast used: (None if empty) FINDINGS: There is severe degeneration changes of the right shoulder with [id number] articulation a nd deformity to the humeral head and the glenoid. Metallic marker placement is immediately over the a cromion processes no subcutaneous cyst directly beneath the palpable marker. There is a joint effusio n present however. Mild fatty atrophy changes of the spinous muscle and to lesser extent infraspinatu s. IMPRESSION: End-stage right shoulder osteoarthrosis with findings suggestive of rotator cuff tear with mild atrop hy of the supraspinatus muscle. There is a [id number] joint effusion present.
== END | disposition home or self-care (01) ==
LOC: RADCTMAIN 09:58
PROVIDERS: ATTEND Orthopaedic Surgery Sports Medicine
DX: M19.011 Primary osteoarthritis, right shoulder (principal); M25.411 Effusion, right shoulder; Z01.818 Encounter for other preprocedural examination

== ENCOUNTER → 2023-11-12 | Outpatient (CLI) | payer BC ==
[2023-11-12 14:06] LABS: INR 0.9 (<1.2); Partial Thromboplastin Time 24.7 sec (22.0-30.0); Prothrombin Time 10.4 sec (10.0-12.5)
[2023-11-12 18:39] LABS: HCT 41.4 % (37.2-46.3); HGB 13.2 g/dL (12.0-15.0); MCH 28.8 pg (27.0-32.0); MCHC 31.9 g/dL (32.0-37.0); MCV 90.2 FL (80.0-97.0); Mean Platelet Volume 9.3 FL (9.5-12.2); NRBC Per 100 WBC 0 X 10*3/uL (0.00-0.01); Platelet Count 182 X 10*3/uL (140-440); RBC 4.59 X 10*6/uL (4.10-5.20); RDW 13.4 % (11.5-14.5)
[2023-11-12 19:33] LABS: ALT 18 U/L (8-44); AST 25 U/L (13-35); Albumin 4.3 g/dL (3.8-4.9); Albumin/Globulin Ratio 1.95 Ratio (1.60-3.17); Alkaline Phosphatase 139 U/L (41-126); BUN/Creat Ratio 14.33 Ratio (12.00-20.00); Blood Urea Nitrogen 12.9 mg/dL (9.0-27.0); Calcium 9.5 mg/dL (8.7-10.3); Carbon Dioxide 24.8 mmol/L (21.6-31.8); Chloride 109 mmol/L (96-109); Globulin 2.2 g/dL (1.6-3.3); Glucose 94 mg/dL (70-110); Potassium 3.8 mmol/L (3.5-5.5); Sodium 145 mmol/L (135-145); Total Bilirubin 1.1 mg/dL (0.3-1.2); Total Protein 6.5 g/dL (6.2-8.2)
== END | disposition home or self-care (01) ==
LOC: LABPAT 13:00
PROVIDERS: ATTEND Orthopaedic Surgery Sports Medicine
DX: Z01.818 Encounter for other preprocedural examination (principal); M19.011 Primary osteoarthritis, right shoulder; Z22.322 Carrier or suspected carrier of Methicillin resistant Staphylococcus aureus
CPT/HCPCS: 80053; 85027; 85610; 85730; 87070; 93005

== ENCOUNTER 2023-11-25 05:36 | Observation (INO) | payer BC, MEDICARE ==
[2023-11-22 12:42] VITALS: BMI 28.3
[~2023-11-25 05:36] MED LIST changes: -ACETAMINOPHEN TAB 500 MG TAB PO PRN; -Pre Op ABX Message 1 EACH MISC MISCELLANE ONE
[2023-11-25] MEDS: LACTATED RINGERS 1,000 ML IV SCH ×2 (06:10→14:04)
[2023-11-25] MEDS: ONDANSETRON 4 MG/2 ML VIAL IVP ONE ×2 (06:28→08:58)
[2023-11-25] MEDS: ACETAMINOPHEN TAB 500 MG TAB PO PRN (06:28)
[2023-11-25] MEDS: DEXAMETHASONE SOD PHOSPHATE 4 MG/ML 1 ML VIAL IV ONE (06:28)
[2023-11-25] MEDS: MIDAZOLAM 2 MG/2 ML VIAL IVP ONE (06:41)
[2023-11-25] MEDS ORDERED: PHENYLEPHRINE-0.9% NACL SYG 1,000 MCG/10 ML SYRINGE ONE (07:03)
[2023-11-25] MEDS ORDERED: LIDOCAINE 1% INJ 10MG/ML (20 ML MDV) ONE (07:03)
[2023-11-25] MEDS ORDERED: ROPIVACAINE 5 MG/ML 30 ML VIAL ONE (07:03)
[2023-11-25] MEDS ORDERED: ROCURONIUM 10 MG/ML (5 ML VIAL) IV ONE (07:03)
[2023-11-25] MEDS ORDERED: NEOSTIGMINE 1 MG/ML 10 ML VIAL ONE (07:03)
[2023-11-25] MEDS ORDERED: DEXAMETHASONE SOD PHOSPHATE 10 MG/ML 1 ML VIAL ONE (07:03)
[2023-11-25] MEDS ORDERED: PHENYLEPHRINE 10 MG/ML VIAL ONE (07:03)
[2023-11-25] MEDS ORDERED: GLYCOPYRROLATE 0.2 MG/ML 2 ML VIAL ONE (07:03)
[2023-11-25] MEDS ORDERED: fentaNYL (PF) 50 MCG/ML 2 ML AMP ONE (07:03)
[2023-11-25] MEDS ORDERED: SUCCINYLCHOLINE CHLORIDE 200 MG/10 ML VIAL IV ONE (07:03)
[2023-11-25] MEDS ORDERED: PROPOFOL 10 MG/ML 20 ML VIAL IV ONE (07:03)
[2023-11-25] MEDS ORDERED: TRANEXAMIC 1,000 MG/100ML-NACL PREMIX BAG ONE (07:03)
[2023-11-25] MEDS ORDERED: DEXAMETHASONE SOD PHOSPHATE 4 MG/ML 1 ML VIAL ONE (07:03)
[2023-11-25] MEDS: ceFAZolin 1,000 MG in SODIUM CHLORIDE 0.9% 1,000 ML IRRIGATION ONE (08:00)
[2023-11-25] MEDS: VANCOMYCIN 1,000 MG VIAL MISCELLANE ONE (08:27)
[2023-11-25] MEDS ORDERED: HYDROmorphone 0.5 MG/0.5 ML SYRINGE IVP PRN ×2 (08:54)
[2023-11-25] MEDS ORDERED: ONDANSETRON 4 MG/2 ML VIAL IVP PRN (08:54)
[2023-11-25] MEDS ORDERED: HYDROcodone/APAP 5-325MG 1 EACH TAB PO PRN (08:54)
[2023-11-25] MEDS ORDERED: METOCLOPRAMIDE 5 MG/ML 2 ML VIAL IVP PRN (08:54)
[2023-11-25] MEDS: LACTATED RINGERS 1,000 ML IV ONE (09:05)
[2023-11-25] MEDS: HYDROmorphone 0.5 MG/0.5 ML SYRINGE IVP PRN ×2 (09:12→16:12)
--- NOTE | 2023-11-25 10:18 | OP ---
OPERATIVE REPORT DATE OF SERVICE : 11/25/2023 CIVIL STRUCTURAL DESIGNER: Steve Rayo PA-C. PREOPERATIVE DIAGNOSIS: Right shoulder advanced osteoarthrosis. POSTOPERATIVE DIAGNOSES: 1. Right shoulder advanced osteoarthrosis. 2. Right shoulder tear of the supraspinatus. PROCEDURE PERFORMED: Right reverse total shoulder arthroplasty. ANESTHESIA: General endotracheal. ESTIMATED BLOOD LOSS: 100 mL. DRAINS: None. COMPLICATIONS: None apparent. DISPOSITION: Postanesthesia care unit. INDICATIONS: Mireya is a very pleasant 78-year-old female with longstanding right shoulder pain. Workup including x-rays revealed advanced osteoarthrosis of the right shoulder. At this point, it was felt that she has failed conservative management. She would like to proceed with operative intervention. The risks of procedure were discussed with her in detail. These risks include, but are not limited to, risk of infection, nerve damage, bleeding, pain, instability in the shoulder, loosening of the implants, and deep infection. There is also small risk of deep vein thrombosis which could lead to fatal pulmonary embolism. The patient understood these risks. All of her questions with regard to risks of procedure were answered to her satisfaction. Appropriate informed consent was obtained. DESCRIPTION OF PROCEDURE: The patient was identified in the preoperative holding area. Surgical site was marked by both the patient and myself. She was given 2 g of Ancef IV for prophylactic purposes. She was then transported to the operative suite. She was placed supine on the operating room table. A general anesthetic was then administered and dosed per the anesthesia without apparent complication. An examination under anesthesia performed of the right shoulder. She had elevation 120 degrees, external rotation to the side was to 45 degrees. The patient was then placed into the beach chair position well-padded in preparation for surgery. Great care was taken to ensure that her cervical spine was in neutral alignment, well-padded, and maintained that way throughout the operative procedure. Great care was taken to ensure that her legs were appropriately padded as well. The patient's right upper extremity was then prepped and draped in usual sterile fashion. Standard surgical pause was undertaken to ensure that we were operating the correct site and that appropriate preoperative antibiotics had been given. All staff in the room were in agreement, and we proceeded. The acromion AC joint clavicle and coracoid were marked with a surgical pen. A planned incision starting at the level of clavicle, extended distally over the deltopectoral interval approximately 1 cm lateral to the coracoid was marked with a surgical pen. The incision was then made with a 10-blade scalpel. Dissection was carried down sharply to the deltoid fascia. The deltopectoral interval was identified at the level of clavicle. A small band retractor was then placed onto the proximal deltoid. I then released the deltoid fascia on the lateral aspect of the cephalic vein. The vein was preserved and left in its bed medially. The cephalic vein was protected throughout the entire case. I then identified the clavipectoral fascia. This was incised proximally to the level of the coracoacromial ligament. The coracoacromial ligament was left intact. I then used my fingers to spread the interval between the conjoint tendon and the subscapularis. I felt for the axillary nerve which was readily palpable. I then cleared the subacromial subdeltoid spaces of bursal and scar tissue. I then utilized a brown retractor to hold the deltoid and expose the humeral head. I then proceeded to release the subscapularis in the anterior-inferior shoulder capsule. Rotator cuff was inspected. She did have a degenerative type supraspinatus tear. Rotator interval was identified. The course of the biceps tendon was also identified. I then released the rotator interval. This was released at the base of the coracoid and then out laterally. The subscapularis and capsule were released intertendinously. The subscapularis and capsule release extended distally in a lazy-S fashion approximately 1 cm medial to the biceps tendon. I then continued to release the capsule along the inferior neck in a vertical fashion to approximately the 6 o'clock position. Great care was taken to ensure the capsule was always visualized as it was released as to avoid injuring the axillary nerve. I then brought a Steele facing baster with the arm externally rotated and abducted. Continued to release the capsule inferomedially to the 4 o'clock position. The inferior osteophytes were then removed as well. This was done with a rongeur. I then proceeded with preparation of the humerus. I removed all the goat's tate osteophytes. I then removed the subchondral plate from the superior aspect of the humeral head utilizing a large rongeur. I then used a starting reamer to gain access to the humeral canal. This was 1 cm medial to the rotator cuff insertion and 1 cm posterior to the bicipital groove. I then prepared the humeral canal with hand reaming. I started with a 6 mm reamer and incrementally increased until firm resistance was encountered at 12 mm. The reamer handle was then left in place. I then utilized a humeral resection guide set at 30 degrees of retrotorsion. The cutting block was then set at approximately 1 mm above the insertion of the rotator cuff. I then proceeded to osteotomize the humeral head with an oscillating saw. I removed the resection guide and then completed the osteotomy. I then proceeded with trial stem placement. The trial size 12 was then broached into the canal starting with a 6 mm broach and incrementally increasing up to a 12 mm broach. The 12 mm trial stem was then left in place. At this point, I did release the biceps tendon. This was tenotomized at the level of superior labrum. A bone hook was then used to pull the humerus out laterally. I then inspected the joint for any loose bodies. The condition of the cuff was again inspected. She did have a small supraspinatus tear. Decision was made to proceed with a reverse shoulder arthroplasty at this point. The Bhattman retractor was then placed on the posterior glenoid rim. The arm was placed at approximately 80 degrees of abduction and in slight flexion on the Steele stand. I then proceeded to remove the hypertrophic labrum to definitively identify the actual glenoid. I then selected the size of glenoid. We used a mini base plate guide. The pin was then placed in the center of the glenoid in approximately 10 degrees of inferior tilt. I then proceeded to ream the glenoid fossa with a mini base plate reamer. As much as a little bit reaming was done as possible as to preserve as much subchondral bone as possible. At this point, I then trialed the small offset. Posterior superiorly, the small offset fit very nice, much better. I then had the new accounts representative open a JanesLotame Mini small offset base plate. This was then placed on the actual glenoid with the offset posterior superiorly. This fit very nicely onto the glenoid. I then proceeded with placement of the central screw. This was a 30 mm central screw. Excellent purchase in bone. I was able to rotate the scapula through the screwdriver when the screw was fully seated. I then proceeded to place the peripheral locking screws. The inferior screw was a 20 mm screw, the anterior posterior and superior screws were 15 mm screws. I then had the new accounts representative open a 36-mm glenosphere. Slightly offset inferiorly. The Arevalo taper was dried and the real glenosphere was impacted onto the real base plate. The glenosphere was firmly seated. I then proceeded to trial with the real glenosphere. Started with a standard tray and standard poly. This was a mildly difficult reduction. It was very stable throughout a full range of motion. There was no impingement noted. I made a decision to proceed with a standard tray and standard poly. The shoulder was then carefully redislocated. The trial stem and tray removed. The wound was thoroughly irrigated with sterile saline solution with antibiotic added via pulse lavage. I also used the IrriSept antiseptic solution at this point in time as well. I then had the new accounts representative open a size 12 mini stem standard tray in a standard base plate. The mini stem was impacted into the proximal humerus and approximately 30 degrees of retrotorsion. The Arevalo taper was dried and then standard tray standard base plate was then impacted onto the real stem. The shoulder was again reduced. It was very stable reduction. There was no impingement noted. It was stable throughout a full range of motion. I then felt for the axillary nerve which was readily palpable. At this point, I proceeded with closure. The wound was again thoroughly irrigated and again we utilized the IrriSept antiseptic solution. Approximately 500 mg of vancomycin powder was placed deep. The deltopectoral interval was then reapproximated with 0 Vicryl interrupted suture. The subcutaneous tissue was then thoroughly irrigated. The remaining 500 mg of vancomycin powder were then placed subcutaneously. The subcutaneous tissue was then closed with 2-0 Vicryl interrupted suture and the skin was closed with a running 3-0 Quill suture. Dermabond was applied to the incision. Sterile compressive dressings were applied. All sponge and needle counts were deemed correct prior to closure. The patient tolerated the procedure without apparent complication. She was transferred to recovery room in stable condition. MMODL / IJN: [id number] /
--- NOTE | 2023-11-25 10:26 | XR ---
EXAMINATION TYPE: XR shoulder limited RT DATE OF EXAM: 11/25/2023 COMPARISON: NONE HISTORY: 78-year-old female postoperative evaluation TECHNIQUE: One view FINDINGS: Single frontal view shows placement of reverse right total shoulder arthroplasty. Both memo osphere and humeral stem component of the prosthesis appear well seated without periprosthetic fractu re. Alignment appears appropriate. Soft tissue air related to recent operation. Low lung volumes visu alized right hemithorax. IMPRESSION: Uncomplicated postoperative appearance of reverse right total shoulder arthroplasty.
[2023-11-25] MEDS ORDERED: LORazepam 0.5 MG TAB PO PRN (13:45)
[2023-11-25] MEDS: Pre Op ABX Message 1 EACH MISC MISCELLANE ONE (14:04)
--- NOTE | 2023-11-25 21:02 | P.ANPRN ---
Procedure Note - Anesthesia - Nerve Block Performed Right Interscalene Single Time Out Performed: Yes Date of Procedure: 11/25/23 Procedure Start Time: 06:40 Procedure Stop Time: 06:44 Location of Patient: PreOp Indication: Acute Post-Operative Pain, Requested by Surgeon Sedation Type: Sedate with meaningful contact maintained Preparation: Sterile Prep Position: Supine Needle Types: Pajunk Needle Gauge: 21 Ultrasound used to visualize needle placement: Yes Ultrasound used to observe medication spread: Yes Blood Aspirated: No Pain Paresthesia on Injection Noted: No Resistance on Injection: Normal Image Stored and Saved: Yes Events: Uneventful and Well Tolerated (Ropivacaine 0.5% 20 cc plus dexamethasone 4 mg)
[2023-11-25] MEDS: diphenhydrAMINE 25 MG CAP PO PRN (21:55)
[2023-11-25] MEDS: HEPARIN SODIUM,PORCINE 5,000 UNIT/ML 1 ML VIAL SQ SCH (21:55)
--- NOTE | 2023-11-26 01:54 | CONS ---
CONSULTATION REASON FOR CONSULTATION: UTI and other medical issues requested by Orthopedics. HISTORY OF PRESENT ILLNESS: This is a 78-year-old woman with a past medical history of multiple medical problems, underwent right shoulder arthroplasty. The patient had UTI. The patient is taking Augmentin, 2 more days to go. No chest pain, no palpitations. No fever, no dysuria. PAST MEDICAL HISTORY: Reviewed include hypertension, DJD. Rest of the history and rest of the chart is also reviewed. HOME MEDICATIONS: Reviewed include Cardizem, rest of the medications and doses are reviewed. ALLERGIES: Multiple allergies reviewed are aspirin, amlodipine. FAMILY HISTORY: History of DVT in the family. SOCIAL HISTORY: History of anxiety. REVIEW OF SYSTEMS: A 14-point review is negative except as mentioned. PHYSICAL EXAMINATION: VITAL SIGNS: Pulse is 61, blood pressure 118/62, respirations 17. HEENT: Conjunctivae normal. NECK: No jugular venous distention. CARDIOVASCULAR: S1, S2. RESPIRATIONS: n ABDOMEN: Soft, nontender. LEGS: No edema, no swelling. NERVOUS SYSTEM: No focal deficits. EXTREMITIES: Shoulder, status post right arthroplasty. LABS: Previous labs are reviewed. ASSESSMENT: 1. Status post right shoulder arthroplasty. 2. History of recent UTI. 3. Hypertension. 4. Rheumatoid arthritis. 5. History of SVT. 6. Family history of DVT. RECOMMENDATIONS: Recommended to continue current management, continue symptomatic treatment. Recommended to continue with Augmentin to finish the course. Otherwise, I would also recommend DVT prophylaxis. Resume the home medications. Recommend close followup with primary physician after discharge. Rest of the recommendations per Orthopedic Service. MMODL / IJN: [id number] / [facility]
[2023-11-26] MEDS: HYDROcodone/APAP 5-325MG 1 EACH TAB PO PRN (06:32)
[2023-11-26] MEDS: SERTRALINE 100 MG TAB PO SCH (07:58)
[2023-11-26] MEDS: SPIRONOLACTONE 25 MG TAB PO SCH (07:58)
[2023-11-26] MEDS: DILTIAZEM CD 180 MG CAP.ER.24H PO SCH (07:58)
[2023-11-26] MEDS: AMOXICILLIN 875 MG TAB PO SCH (07:58)
[2023-11-26] MEDS: PANTOPRAZOLE 40 MG TABLET PO SCH (07:59)
[2023-11-26] MEDS: LOSARTAN 50 MG TAB PO SCH (07:59)
[2023-11-26] MEDS: LORATADINE 10 MG TAB PO SCH (07:59)
[2023-11-26 09:13] LABS: Basophils % (A) 0 %; Eosinophils % (A) 0 %; HGB 12.6 gm/dL (11.4-16.0); Lymphocytes # (A) 0.9 k/uL (1.0-4.8); Lymphocytes % (A) 7 %; MCH 28.3 pg (25.0-35.0); MCHC 31.5 g/dL (31.0-37.0); MCV 89.9 fL (80.0-100.0); Mean Platelet Volume 7.8; Monocytes # (A) 0.7 k/uL (0-1.0); Monocytes % (A) 5 %; Neutrophils # (A) 11.9 k/uL (1.3-7.7); Neutrophils % (A) 88 %; Platelet Count 227 k/uL (150-450); RBC 4.45 m/uL (3.80-5.40); RDW 13.4 % (11.5-15.5); WBC 13.6 k/uL (3.8-10.6)
--- NOTE | 2023-11-26 10:15 | P.PN ---
Subjective Progress Note Date: 11/26/23 Principal diagnosis: S/P reverse right total shoulder arthroplasty Patient is seen at bedside this morning. She is postop day #1 from reverse right total shoulder arthroplasty. She has pain at the surgical site as expected but denies any new complaints. She denies numbness, tingling or calf pain. Review of systems is negative for fever, chills, chest pain, shortness of breath or other Objective - Vital Signs Vital signs: Vital Signs Temp 98.4 F 11/26/23 07:06 Pulse 92 11/26/23 07:06 Resp 20 11/26/23 07:06 BP 158/89 11/26/23 07:06 Pulse Ox 94 L 11/26/23 07:06 FiO2 Intake & Output 11/25/23 11/26/23 11/26/23 18:59 06:59 18:59 Intake Total 1001 Output Total 100 Balance 901 Weight 79.2 kg Intake: IV 1001 Output: Estimated Blood Loss 100 Other: Voiding Method Toilet # Voids 1 3 - Exam Inspection reveals a benign surgical wound. There is no active bleeding or drainage. Neurovascular status is intact throughout the upper extremity with motor and sensation fully intact. Calves are soft and nontender. 2+ radial pulse and less than 2 second cap refill is present. - Constitutional General appearance: Present: no acute distress - Labs CBC & Chem 7: 11/26/23 08:18 Labs: Abnormal Lab Results - Last 24 Hours (Table) 11/26/23 Range/Units 08:18 WBC 13.6 H (3.8-10.6) k/uL Neutrophils # 11.9 H (1.3-7.7) k/uL Lymphocytes # 0.9 L (1.0-4.8) k/uL Assessment and Plan (1) Osteoarthritis of right shoulder Narrative/Plan: She will continue with routine postop orthopedic protocol including pain management, wound care, DVT prophylaxis and medical management. Expect that she will transfer to home tomorrow Current Visit: Yes Status: Acute Priority: Medium Code(s): M19.011 - PRIMARY OSTEOARTHRITIS, RIGHT SHOULDER SNOMED Code(s): [id number] Time with Patient: Less than 30
[2023-11-26] MEDS: ESTRADIOL 0.1 MG/GM VAGINAL CREAM 42.5 GM TUBE VAGINAL SCH (20:26)
[2023-11-26] MEDS ORDERED: ACETAMINOPHEN TAB 325 MG TAB PO PRN (20:43)
--- NOTE | 2023-11-26 20:57 | PN ---
PROGRESS NOTE DATE OF SERVICE: 11/26/2023 SUBJECTIVE: This is a 78-year-old woman, who was admitted after right shoulder arthroplasty, is complaining of some pain. No chest pain. No palpitations. No fever. OBJECTIVE: VITAL SIGNS: Pulse 72, blood pressure 130/80, respirations 20. CHEST: Clear to auscultation. CARDIOVASCULAR: S1, S2. ABDOMEN: Soft. EXTREMITIES: Right shoulder status post arthroplasty. LABORATORY DATA: WBC 13.6. ASSESSMENT: 1. Status post right shoulder arthroplasty. 2. History of recent urinary tract infection. 3. Hypertension. 4. Rheumatoid arthritis. 5. History of supraventricular tachycardia. 6. Family history of deep venous thrombosis. RECOMMENDATIONS: Recommend to continue current management and continue symptomatic treatment. Otherwise, I would recommend continue the current medications. Complete the course of antibiotics. Otherwise, pain management. Closely monitor. Rest of the recommendations per Orthopedic Surgery. Further recommendations to follow. MMODL / IJN: [id number] /
[2023-11-26] MEDS: diphenhydrAMINE 25 MG CAP PO PRN (23:58)
[2023-11-27] MEDS: SENNOSIDES-DOCUSATE SODIUM 1 EACH TAB PO PRN (00:15)
[2023-11-27 07:56] VITALS: BP 157/99; PULSE 68; RESP 16; TEMP 97.8
--- NOTE | 2023-11-27 08:45 | P.DS ---
Providers Date of admission: 11/26/23 11:34 Expected date of discharge: 11/27/23 Attending physician: Jonnie Neal Consults: 11/25/23 08:54 Consult Physician Routine Consulting Provider: Joaquina Cespedes Consult Reason/Comments: post op medical management Do you want consulting provider notified?: Yes Primary care physician: Alivia Tariq MD - Discharge Diagnosis(es) (1) Osteoarthritis of right shoulder Current Visit: Yes Status: Acute Priority: Medium (2) Status post reverse arthroplasty of right shoulder Current Visit: Yes Status: Acute Hospital Course: This is a 78-year-old female who has history of severe degenerative arthritis of the right shoulder and presented to discuss surgical options. After discussion and consideration the patient elects to proceed with total shoulder arthro plasty. The pt is seen preoperatively by their family physician and cleared for surgery. The patient is admitted to [facility] on 11/25/2023 for right reverse total shoulder arthroplasty. She is doing well postoperatively. Vital signs and hemoglobin are stable. The patient is able to get up out of bed independently and is ambulating without assistance. Pain is well controlled. Patient is discharged to home on postoperative day #2 in good condition. Please see med rec for accurate list of home medications. Pertinent Studies: Laboratory Tests 11/26/23 08:18 WBC 13.6 H RBC 4.45 Hgb 12.6 Neutrophils # 11.9 H Lymphocytes # 0.9 L Patient Condition at Discharge: Stable Plan - Discharge Summary Discharge Rx Participant: No New Discharge Prescriptions: New Docusate [Colace] 100 mg PO BID #60 capsule HYDROcodone/APAP 7.5-325MG [[place] 7.5-325] 1 - 2 tab PO Q6HR PRN #42 tab PRN Reason: Pain Doxycycline Hyclate 100 mg PO BID #10 tab Ondansetron [Zofran] 4 mg PO Q8HR PRN #21 tab PRN Reason: Nausea No Action Ondansetron [Zofran] 4 mg PO Q12HR PRN PRN Reason: Nausea Losartan Potassium 50 mg PO DAILY Esomeprazole Magnesium [NexIUM] 20 mg PO DAILY Amoxicillin 875 mg PO Q12HR Spironolactone [Aldactone] 25 mg PO DAILY Sertraline [Zoloft] 100 mg PO DAILY Estradiol Cream [Estrace Cream 0.01%] 1 gm VAGINAL Q48H Cetirizine HCl [Zyrtec] 10 mg PO DAILY dilTIAZem HCL [dilTIAZem HCL 24Hr ER (Tiazac)] 360 mg PO DAILY Cranberry Fruit Extract [Cranberry] 2 tab PO BID Ketorolac [Toradol] 10 mg PO Q6HR PRN PRN Reason: Pain LORazepam [Lorazepam] 0.5 mg PO DIRECTED PRN PRN Reason: Anxiety Discharge Medication List Cetirizine HCl [Zyrtec] 10 mg PO DAILY 06/01/23 [History] Cranberry Fruit Extract [Cranberry] 2 tab PO BID 06/01/23 [History] Estradiol Cream [Estrace Cream 0.01%] 1 gm VAGINAL Q48H 06/01/23 [History] Losartan Potassium 50 mg PO DAILY 06/01/23 [History] Ondansetron [Zofran] 4 mg PO Q12HR PRN 06/01/23 [History] Sertraline [Zoloft] 100 mg PO DAILY 06/01/23 [History] Spironolactone [Aldactone] 25 mg PO DAILY 06/01/23 [History] dilTIAZem HCL [dilTIAZem HCL 24Hr ER (Tiazac)] 360 mg PO DAILY 06/01/23 [History] Amoxicillin 875 mg PO Q12HR 11/22/23 [History] Esomeprazole Magnesium [NexIUM] 20 mg PO DAILY 11/22/23 [History] Ketorolac [Toradol] 10 mg PO Q6HR PRN 11/22/23 [History] LORazepam [Lorazepam] 0.5 mg PO DIRECTED PRN 11/22/23 [History] Docusate [Colace] 100 mg PO BID #60 capsule 11/26/23 [Rx] Doxycycline Hyclate 100 mg PO BID #10 tab 11/26/23 [Rx] HYDROcodone/APAP 7.5-325MG [[place] 7.5-325] 1 - 2 tab PO Q6HR PRN #42 tab 11/26/23 [Rx] Ondansetron [Zofran] 4 mg PO Q8HR PRN #21 tab 11/26/23 [Rx] Follow up Appointment(s)/Referral(s): Jonnie Neal MD [STAFF PHYSICIAN] - 10 Days Activity/Diet/Wound Care/Special Instructions: maintain sling keep wound clean and dry take meds as directed f/u in office may shower in 3 days non weightbearing RUE Discharge Disposition: HOME SELF-CARE
--- NOTE | 2023-11-27 13:51 | PN ---
PROGRESS NOTE DATE OF SERVICE: 11/27/2023 SUBJECTIVE: This is a 78-year-old woman who was admitted after right shoulder arthroplasty, improving significantly. No chest pain, no palpitations, no fever. OBJECTIVE: VITAL SIGNS: Pulse is 71, blood pressure 110/70, respirations 17. CHEST: Clear to auscultation. CARDIOVASCULAR: S1, S2. ABDOMEN: Soft. EXTREMITIES: Right shoulder arthroplasty. ASSESSMENT: 1. Status post right shoulder arthroplasty. 2. History of recent UTI. 3. Hypertension. 4. Rheumatoid arthritis. 5. History of CAD. 6. Family history of DVT. RECOMMENDATIONS AND DISCUSSION: Recommended to continue current management, continue symptomatic treatment. Resume the home medications. Closely follow with Primary. Rest of the recommendations per Orthopedic surgery. MMODL / IJN: [id number] /
== END 2023-11-27 12:59 | disposition home or self-care (01) ==
LOC: OR 05:36 → 4SSUR 12:32 → OR 11-26 11:34
PROVIDERS: ADMIT Orthopaedic Surgery Sports Medicine; ATTEND Orthopaedic Surgery Sports Medicine
DX: M19.011 Primary osteoarthritis, right shoulder (principal); M17.11 Unilateral primary osteoarthritis, right knee; G89.18 Other acute postprocedural pain; N39.0 Urinary tract infection, site not specified; M75.100 Unspecified rotator cuff tear or rupture of unspecified shoulder, not specified as traumatic; I10 Essential (primary) hypertension; M06.9 Rheumatoid arthritis, unspecified; I25.10 Atherosclerotic heart disease of native coronary artery without angina pectoris; Z82.49 Family history of ischemic heart disease and other diseases of the circulatory system; F41.9 Anxiety disorder, unspecified; Z79.899 Other long term (current) drug therapy; Z79.890 Hormone replacement therapy
CPT/HCPCS: 23472; 96361; 96365; 96372 ×2; 64415; 85025; 73020; G0378 ×2; C1776; J2250; J3370; J0330; J1644 ×3; J1100 ×2; J2710; J0690 ×2; J2405; J2001; J3010; J2795; J2704; J1170 ×2; J2371 ×2

== ENCOUNTER → 2024-02-21 | Outpatient (CLI) | payer BC, MEDICARE ==
[2024-02-21 09:26] LABS: Partial Thromboplastin Time 25.9 sec (22.0-30.0); Prothrombin Time 10.7 sec (10.0-12.5)
[2024-02-21 15:41] LABS: ALT 15 U/L (8-44); AST 26 U/L (13-35); Albumin 4.5 g/dL (3.8-4.9); Albumin/Globulin Ratio 1.96 Ratio (1.60-3.17); Alkaline Phosphatase 113 U/L (41-126); BUN/Creat Ratio 29.33 Ratio (12.00-20.00); Blood Urea Nitrogen 26.4 mg/dL (9.0-27.0); Calcium 9.7 mg/dL (8.7-10.3); Carbon Dioxide 21.1 mmol/L (21.6-31.8); Chloride 109 mmol/L (96-109); Globulin 2.3 g/dL (1.6-3.3); Glucose 92 mg/dL (70-110); Potassium 4.5 mmol/L (3.5-5.5); Sodium 143 mmol/L (135-145); Total Protein 6.8 g/dL (6.2-8.2)
[2024-02-21 17:07] LABS: HCT 43.8 % (37.2-46.3); HGB 13.5 g/dL (12.0-15.0); MCH 27.2 pg (27.0-32.0); MCHC 30.8 g/dL (32.0-37.0); MCV 88.3 FL (80.0-97.0); Mean Platelet Volume 10.2 FL (9.5-12.2); NRBC Per 100 WBC 0 X 10*3/uL (0.00-0.01); Platelet Count 220 X 10*3/uL (140-440); RBC 4.96 X 10*6/uL (4.10-5.20); RDW 13.6 % (11.5-14.5); WBC 7.34 X 10*3/uL (4.50-10.00)
== END | disposition home or self-care (01) ==
LOC: LABPAT 08:16
PROVIDERS: ATTEND Orthopaedic Surgery
DX: Z01.818 Encounter for other preprocedural examination (principal); M16.12 Unilateral primary osteoarthritis, left hip; Z22.322 Carrier or suspected carrier of Methicillin resistant Staphylococcus aureus
CPT/HCPCS: 36415; 80053; 85027; 85610; 85730; 86850; 86900; 86901; 87070; 93005

== ENCOUNTER 2024-02-29 05:40 | Observation (INO) | payer BC, MEDICARE ==
[2024-02-24 10:43] VITALS: BMI 28.3
[~2024-02-29 05:40] MED LIST changes: -ONDANSETRON 4 MG/2 ML VIAL IVP PRN
[2024-02-29] MEDS ORDERED: LIDOCAINE 1% (10MG/ML) FOR IV START INTRADERMA PRN (05:44)
[2024-02-29] MEDS: IV FLUID CONTINUATION 1,000 ML IV ONE ×2 (05:55→08:27)
[2024-02-29] MEDS: ACETAMINOPHEN TAB 500 MG TAB PO PRN (06:23)
[2024-02-29] MEDS: LACTATED RINGERS 1,000 ML IV SCH (06:24)
[2024-02-29] MEDS: DEXAMETHASONE SOD PHOSPHATE 4 MG/ML 1 ML VIAL IV ONE (06:24)
[2024-02-29] MEDS: ONDANSETRON 4 MG/2 ML VIAL IVP ONE (06:24)
[2024-02-29] MEDS: MIDAZOLAM 2 MG/2 ML VIAL IV ONE (06:47)
[2024-02-29] MEDS: fentaNYL (PF) 50 MCG/ML 2 ML AMP IVP PRN (06:48)
[2024-02-29] MEDS ORDERED: LIDOCAINE 1% INJ 10MG/ML (20 ML MDV) ONE (06:58)
[2024-02-29] MEDS ORDERED: ePHEDrine 50 MG/ML 1 ML VIAL ONE (06:58)
[2024-02-29] MEDS ORDERED: PROPOFOL 10 MG/ML 20 ML VIAL IV ONE (06:58)
[2024-02-29] MEDS ORDERED: MIDAZOLAM 2 MG/2 ML VIAL ONE (06:58)
[2024-02-29] MEDS ORDERED: ROPIVACAINE 5 MG/ML 30 ML VIAL ONE (06:58)
[2024-02-29] MEDS ORDERED: TRANEXAMIC 1,000 MG/100ML-NACL PREMIX BAG ONE (06:58)
[2024-02-29] MEDS ORDERED: HYDROmorphone 0.5 MG/0.5 ML SYRINGE IVP PRN ×3 (07:00→08:46)
[2024-02-29] MEDS: ceFAZolin 1,000 MG in SODIUM CHLORIDE 0.9% 1,000 ML IRRIGATION ONE (07:00)
[2024-02-29] MEDS: CLINDAMYCIN 600 MG in DEXTROSE 5% IN WATER 50 ML IVPB STA (07:00)
[2024-02-29] MEDS: ROPIVACAINE 5 MG/ML 30 ML VIAL MISCELLANE ONE ×2 (07:34→08:15)
--- NOTE | 2024-02-29 08:26 | P.OP ---
Date of Procedure: 02/29/24 Preoperative Diagnosis: Severe osteoarthritis left hip Postoperative Diagnosis: Severe osteophyte arthritis left hip Procedure(s) Performed: Left total hip arthroplasty with a direct anterior approach Implants: [employer] Polarstem standard size 7 with a collar [employer] R3, 3 hole hemispherical acetabular shell, 52 mm [employer] Reflection 6.5 mm cancellus screw, 20 mm 2 [employer] R3, XLPE 20 acetabular liner [employer]hew Oxinium femoral head 36 mm, -3 All components were press-fit. The articulation is Oxinium on polyethylene. Anesthesia: spinal Surgeon: Jorge Mahan Bus Washer #1: Moriah Carbajal Estimated Blood Loss (ml): 250 Pathology: none sent Condition: stable Disposition: PACU Indications for Procedure: After failure of conservative treatment we discussed the surgical and no nsurgical treatment options at length. Patient wishes to proceed with a total hip arthroplasty with a direct anterior approach. Complications specific to this procedure were discussed at length, including but not limited to infection, leg length discrepancy, dislocation, nerve injury, and fracture. Covid-19 was also discussed at length with the patient, and they are aware of the current policies and procedures. The patient was given the option of delaying surgery, but they elect to proceed knowing these risks. Patient is aware of all these complications and informed consent was obtained Operative Findings: The operative findings are consistent with severe osteoarthritis of the left hip Description of Procedure: The patient was seen and evaluated in the preoperative area and the consent was reviewed. The operative site was marked with a skin marker. The patient verified the procedure and operative site. A FRANK block was placed by anesthesia in the preoperative area. The patient was then brought to the operating room and given preoperative antibiotics intravenously. 1 g of Tranexamic acid was also given intravenously. A spinal anesthetic was administered by the anesthesia department. The patient was then placed on the Fossil table with the bony prominences well-padded. The hip area was then prepped with a ChloraPrep solution and draped in the usual sterile fashion. A universal timeout was then performed, which confirmed the patient's name, surgical site, ALLERGIES, and procedure being performed on the consent. Next the incision site was located at 1 cm distal and 4 cm lateral to the anterior superior iliac spine. The skin and subcutaneous tissues were sharply incised. Incision was carefully dissected down to the fascia overlying the tensor fascia ivania muscle. This fascia was then incised in line with the muscle fibers. Care was taken to stay laterally in order to avoid injuring the lateral femoral cutaneous nerve. Next, using blunt finger dissection, the tensor fascia ivania muscle was dissected off its investing fascia. The muscle was then carefully retracted laterally with a cobra retractor over the lateral neck of the femur. Next, the circumflex vessels were identified and cauterized using the Aquamantis device. The anterior hip capsule was then exposed. The capsule was then opened and an inverted T fashion. The retractors were then placed intracapsularly. The retractors were maintained intracapsular throughout the procedure. The proximal femur was then visualized. Fluoroscopic x-rays were then taken in order to evaluate the preoperative leg lengths. A small amount of traction was placed on the leg. The femoral neck was then osteotomized at the appropriate level above the lesser trochanter. A small wedge of bone was then removed from the remaining femoral head. Next, using a corkscrew the femoral head was removed from the acetabulum. On gross visual inspection, the femoral head had complete loss of articular cartilage and multiple periarticular osteophytes. The femoral head was then measured. Attention was then turned to the acetabulum. The acetabulum was exposed and any remaining labrum was excised. Sequential reaming of the acetabulum was performed using fluoroscopic guidance until there was a good bed of bleeding cancellus bone. When the appropriate size was reached, a trial was then placed. The position and fit of the trial was checked with fluoroscopy. The trial was then removed. Then, using fluoroscopic guidance, the final implant was impacted at 20 of anteversion and 40 of abduction, and fully seated in the acetabulum. 2 screws were then placed in the acetabulum. Again fluoroscopy was used to check position of the screws. Next, the liner was then impacted, with a 20 elevated liner located in the anterior superior quadrant. Component locking was confirmed. Attention was then directed to the femur. With the aid of the Fossil table, the femur was externally rotated to approximately 130, extended, and adducted under the opposite leg. A side hook was then placed under the proximal femur, and the side hook elevator was used to elevate the proximal femur while releasing the capsule. Retractors were then placed. A capsular release was performed, as well as a release of the conjoined tendon, which afforded excellent visualization of the proximal femur. Next, a box osteotome was used to lateralize the proximal femur. A drum handler was then used to locate the femoral canal. Sequential broaching was then performed with appropriate size which afforded excellent fixation in the proximal femur. A trial was then placed with appropriate head and neck, and the hip was gently reduced with the aid of the Fossil table. Fluoroscopy was then used to check position of the components, as well as to evaluate the leg lengths and offset. The leg lengths and offset were measured as closely as possible to ensure stability of the hip. The hip was then gently dislocated and the trials were then removed. Final implants were then impacted and the hip was again reduced. Final fluoroscopic x-rays confirmed that the components were in anatomic position. The leg lengths and offset were measured and were found to coincide with the trial measurements. The hip was also taken through range of motion, and found to be stable. The hip was then copiously irrigated with antibiotic solution with pulsatile lavage. The hip was then irrigated with Irrisept solution. The soft tissues were then injected with a ropivacaine solution. A second dose of 1 g of Tranexamic acid was also given intravenously. The fascia was then closed with 2-0 strata fix suture. The subcutaneous tissue was closed with 3-0 Vicryl. The subcuticular tissue was closed with 3-0 strata fix suture. The skin was then closed with Exofin skin glue. After the glue and dried, and Optifoam silver impregnated dressing was applied. The patient was then transferred to the recovery room in stable condition. The child care assistant KENYA Tompkins was required due to the complexity of surgery, and the need for skilled ophthalmic surgical assistant for positioning, draping, exposure, retraction, and closure of the wound.
[2024-02-29] MEDS ORDERED: NALOXONE 0.4 MG/ML 1 ML VIAL IV PRN (08:46)
[2024-02-29] MEDS ORDERED: MAGNESIUM HYDROXIDE 2,400 MG/30 ML CUP PO PRN (08:46)
[2024-02-29] MEDS ORDERED: HYDROcodone/APAP 7.5-325MG 1 EACH TAB PO PRN (08:48)
--- NOTE | 2024-02-29 09:06 | FL ---
Fluoroscopy History: LEFT HIP OA Fl. time: 39.8 sec DAP: 2.0356
--- NOTE | 2024-02-29 09:42 | XR ---
EXAMINATION TYPE: XR Hip Limited LT DATE OF EXAM: 02/29/2024 CLINICAL HISTORY: Postoperative evaluation TECHNIQUE: Single portable view of the left hip was submitted. FINDINGS: Noted are changes of total hip arthroplasty with femoral and acetabular components appearin g well seated. Alignment is anatomic. Postsurgical soft tissue changes are evident. IMPRESSION: Satisfactory postoperative alignment
[2024-02-29] MEDS: SODIUM CHLORIDE 0.9% 1,000 ML IV SCH (11:01)
[2024-02-29] MEDS: droPERidol 5 MG/2 ML VIAL IVP ONE (11:01)
--- NOTE | 2024-02-29 11:50 | P.CONS ---
History of Present Illness - Reason for Consult Consult date: 02/29/24 Medical Management Requesting physician: Jorge Mahan - History of Present Illness History of Presenting Illness: Patient is a very pleasant 79-year-old female with a past medical history of hypertension, GERD, rheumatoid arthritis, osteoarthritis, and previous episodes of SVT. She is currently admitted under orthopedic surgery team status post left total hip arthroplasty secondary to severe osteoarthritis of left hip. Surgical procedure was completed by Dr. Mahan. We were consulted for medical management throughout patient's hospitalization. Patient was seen and fully evaluated at bedside in room 471 status post completion of surgical procedure. She currently reports only experiencing mild pain to left hip at this time stating she still has some numbness in that area but has full sensation of left lower extremity and movement is intact. She denies having any postoperative nausea or vomiting denies having any headache, lightheadedness, dizziness, chest pain, palpitations, or any other complaints at this time. Review of systems: Pertinent positives and negatives as discussed in HPI, a complete review of systems was performed and all other systems are negative. Physical exam: Vital signs reviewed and stable. General: Nontoxic, no distress and appears stated age. Derm: Skin warm and dry, normal coloration for ethnicity. Head: Atraumatic, normocephalic and symmetric. Eyes: EOMs intact, no lid lag, and anicteric sclera Mouth: no lip lesions, mucus membranes moist Cardiovascular: regular rate and rhythm with normal S1S2, no murmur, positive posterior tibial pulses bilaterally, and cap refill < 2 seconds. Lungs: Respirations even, regular, and unlabored on room air. Lungs CTA bilaterally, no rhonchi, no rales, no wheezing, and no accessory muscle usage. Abdominal: soft, nontender to palpation, no guarding, no appreciable organomegaly Ext: Movement and sensation intact. No gross muscle atrophy, no edema, no contractures Neuro: Speech clear, face symmetrical and CN II-XII grossly intact with no noted focal neuro deficits Psych: Alert and oriented to person, place, time, and situation. Appropriate and pleasant affect. Assessment and Plan of Care: Status post left total hip arthroplasty Management per primary admitting orthopedic surgery team including pain management, DVT prophylaxis, wound/dressing management, weightbearing, and PT/OT. Patient currently on DVT prophylaxis with aspirin 81 mg twice daily. Hypertension History of SVT Continue daily medication regimen with diltiazem HCl 360 mg daily, losartan 50 mg daily, and Aldactone 25 mg daily. Anxiety Continue Zoloft 100 mg daily. GERD Continue Nexium 20 mg daily. Data and imaging reviewed Reviewed preoperative labs completed 02/21/2024 showing WBC count of 7.34, hemoglobin 13.5 and platelet count of 220,000. Reviewed operative report Vital signs reviewed and stable. Blood pressure 105/65, heart rate 81, respiratory rate 16, temp 98.1 F, and SpO2 of 94% on room air. Thank you for allowing us to participate in the care of this pleasant patient. Do not hesitate to contact us with questions. Someone can be reached from the [facility] hospitalist group all hours of the day at [phone] or via [employer]mit. Patient was seen independently by Nurse Practitioner. This document was prepared using Exact[employer]at dictation software. Please allow for errors in preparing box tender while rare they do occur. Past Medical History Past Medical History: GERD/Reflux, Hypertension, Osteoarthritis (OA), Renal Disease, Rheumatoid Arthritis (RA), Supraventricular Tachycardia (SVT) Additional Past Medical History / Comment(s): stage III CKD, migraines, UTI 11/27 23. Bladder leakage. History of Any Multi-Drug Resistant Organisms: None Reported Past Surgical History: Back Surgery, Heart Catheterization, Joint Replacement Additional Past Surgical History / Comment(s): jostin. knee repl., right hip repl., left shoulder repl., jostin. thumb joints repl., Jostin. CTS, ovarian cyst removal, D&C's rt should replacement. Botox injections to bladder. Past Anesthesia/Blood Transfusion Reactions: Postoperative Nausea & Vomiting (PONV) Additional Past Anesthesia/Blood Transfusion Reaction / Comm: Very nauseated post op. Past Psychological History: Anxiety Smoking Status: Former smoker Past Alcohol Use History: Occasional Additional Past Alcohol Use History / Comment(s): Started smoking at 18, 1pack per month, quit at age 22. Past Drug Use History: None Reported - Past Family History Mother Family Medical History: Deep Vein Thrombosis (DVT) Father Family Medical History: Myocardial Infarction (MT) Additional Family Medical History / Comment(s): fatal MT Medications and Allergies Home Medications Medication Instructions Recorded Confirmed Type Cetirizine HCl [Zyrtec] 10 mg PO QAM 06/01/23 02/29/24 History Cranberry Fruit Extract [Cranberry] 2 tab PO BID 06/01/23 02/24/24 History Estradiol Cream [Estrace Cream 1 gm VAGINAL MOWEFR 06/01/23 02/29/24 History 0.01%] Losartan Potassium 50 mg PO QAM 06/01/23 02/29/24 History Ondansetron [Zofran] 4 mg PO Q12HR PRN 06/01/23 02/24/24 History Sertraline [Zoloft] 100 mg PO QAM 06/01/23 02/29/24 History Spironolactone [Aldactone] 25 mg PO QAM 06/01/23 02/29/24 History dilTIAZem HCL [dilTIAZem HCL 24Hr 360 mg PO QAM 06/01/23 02/29/24 History ER (Tiazac)] Esomeprazole Magnesium [NexIUM] 20 mg PO QAM 11/22/23 02/29/24 History Ketorolac [Toradol] 10 mg PO Q6HR PRN 11/22/23 02/24/24 History LORazepam [Lorazepam] 0.5 mg PO HS PRN 11/22/23 02/29/24 History HYDROcodone/APAP 7.5-325MG [[place] 1 - 2 tab PO Q6HR PRN #42 tab 11/26/23 02/29/24 Rx 7.5-325] Ondansetron [Zofran] 4 mg PO Q8HR PRN #21 tab 11/26/23 02/24/24 Rx Aspirin [Adult Low Dose Aspirin EC] 81 mg PO BID 30 Days #60 tab 02/29/24 Rx HYDROcodone/APAP 7.5-325MG [[place] 1 - 2 tab PO Q6H PRN #32 tab 02/29/24 Rx 7.5-325] Sennosides [Senokot] 2 tab PO DAILY PRN #60 tablet 02/29/24 Rx Allergies Allergy/AdvReac Type Severity Reaction Status Date / Time amlodipine [From Norvasc] Allergy Hives Verified 02/24/24 10:32 atenolol [From Tenormin] Allergy Rash/Hives Verified 02/24/24 10:32 ciprofloxacin [From Cipro] Allergy Rash/Hives Verified 02/24/24 10:32 enalaprilat [From Vasotec] Allergy Rash/Hives Verified 02/24/24 10:32 gabapentin [From Neurontin] Allergy Rash/Hives Verified 02/24/24 10:32 hydralazine Allergy lupus Verified 02/24/24 10:32 symptoms hydrochlorothiazide Allergy Rash/Hives Verified 02/24/24 10:32 [From Hyzaar] losartan [From Hyzaar] Allergy Rash/Hives Verified 02/24/24 10:32 meloxicam [From Mobic] Allergy Rash/Hives Verified 02/24/24 10:32 methocarbamol [From Robaxin] Allergy Rash/Hives Verified 02/24/24 10:32 pregabalin [From Lyrica] Allergy Rash/Hives Verified 02/24/24 10:32 sulfamethoxazole Allergy GI Verified 02/24/24 10:32 [From Bactrim] upset,headache,nausea/vomiting triamterene [From Maxzide] Allergy Hives Verified 02/24/24 10:32 trimethoprim [From Bactrim] Allergy GI Verified 02/24/24 10:32 upset,headache,nausea/vomiting vancomycin Allergy Rash/Hives Verified 02/24/24 10:32 cephalexin [From Keflex] AdvReac Nausea & Verified 02/24/24 10:32 Vomiting,GI upset,headache cyclobenzaprine AdvReac pins & Verified 02/24/24 10:32 [From Flexeril] needles sensation all over levofloxacin [From Levaquin] AdvReac tendonitis Verified 02/24/24 10:32 Physical Exam Vitals: Vital Signs Temp Pulse Resp BP BP Pulse Ox 02/29/24 10:24 97.4 F L 66 18 112/74 97 02/29/24 09:55 66 16 121/57 96 02/29/24 09:40 65 18 112/57 98 02/29/24 09:25 63 18 110/57 95 02/29/24 09:10 63 16 110/54 95 02/29/24 08:55 66 16 107/57 94 L 02/29/24 08:41 97.9 F 62 18 98/53 96 02/29/24 06:54 64 16 122/62 96 02/29/24 06:16 97.2 F L 72 20 138/73 96 Intake and Output 02/28/24 02/29/2402/28/24 22:59 06:59 14:59 Intake Total 200 1054 Output Total 250 Balance 200 804 Intake: IV 200 1054 Output: Estimated Blood Loss 250 Other: Weight 78.1 kg 78.1 kg
--- NOTE | 2024-02-29 12:16 | P.ANPRN ---
Procedure Note - Anesthesia - Nerve Block Performed Left Mann Single Time Out Performed: Yes ([id number]) Date of Procedure: 02/29/24 Procedure Start Time: 06:45 Procedure Stop Time: 06:49 Location of Patient: PreOp Indication: Acute Post-Operative Pain, Requested by Surgeon Specifically requested for management of pain by DrJosué: Jorge Mahan Sedation Type: Sedate with meaningful contact maintained Preparation: Sterile Prep Position: Supine Catheter: None Needle Types: Pajunk Needle Gauge: 21 Ultrasound used to visualize needle placement: Yes Ultrasound used to observe medication spread: Yes Injectate: 0.5% Ropivacaine (see comment for volume) (30cc) Blood Aspirated: No Pain Paresthesia on Injection Noted: No Resistance on Injection: Normal Image Stored and Saved: Yes Events: Uneventful and Well Tolerated
[2024-02-29] MEDS: HYDROcodone/APAP 7.5-325MG 1 EACH TAB PO PRN (12:52)
[2024-02-29] MEDS: CLINDAMYCIN 900 MG in DEXTROSE 5% IN WATER 50 ML IVPB SCH (17:37)
[2024-02-29] MEDS: ASPIRIN 81 MG PO SCH (20:56)
[2024-02-29] MEDS: SENNOSIDES-DOCUSATE SODIUM 1 EACH TAB PO SCH (20:56)
[2024-02-29] MEDS: HYDROmorphone 0.5 MG/0.5 ML SYRINGE IVP PRN (21:01)
[2024-03-01] MEDS: PANTOPRAZOLE 40 MG TABLET PO SCH (06:42)
[2024-03-01] MEDS: SERTRALINE 100 MG TAB PO SCH (07:59)
[2024-03-01] MEDS: DILTIAZEM CD 180 MG CAP.ER.24H PO SCH (07:59)
[2024-03-01] MEDS: LORATADINE 10 MG TAB PO SCH (07:59)
[2024-03-01] MEDS: LOSARTAN 50 MG TAB PO SCH (07:59)
[2024-03-01] MEDS: SPIRONOLACTONE 25 MG TAB PO SCH (07:59)
[2024-03-01 10:55] LABS: BUN/Creat Ratio 20.75 Ratio (12.00-20.00); Blood Urea Nitrogen 16.6 mg/dL (9.0-27.0); Carbon Dioxide 20.6 mmol/L (21.6-31.8); Chloride 105 mmol/L (96-109); Glucose 112 mg/dL (70-110); Potassium 4.7 mmol/L (3.5-5.5); Sodium 137 mmol/L (135-145)
[2024-03-01 10:56] LABS: Calcium 8.8 mg/dL (8.7-10.3); Magnesium 1.7 mg/dL (1.5-2.4)
[2024-03-01 10:59] LABS: Basophils % (A) 0.2 %; Eosinophils # (A) 0.05 X 10*3/uL (0.04-0.35); Eosinophils % (A) 0.5 %; HCT 33.6 % (37.2-46.3); HGB 10.6 g/dL (12.0-15.0); Immature Platelet Fraction 1.4 % (1.1-6.1); Lymphocytes % (A) 9.9 %; MCH 26.8 pg (27.0-32.0); MCHC 31.5 g/dL (32.0-37.0); MCV 85.1 FL (80.0-97.0); Monocytes # (A) 0.95 X 10*3/uL (0.20-1.00); Monocytes % (A) 9.4 %; NRBC Per 100 WBC 0 X 10*3/uL (0.00-0.01); Neutrophils # (A) 8.03 X 10*3/uL (1.80-7.70); Neutrophils % (A) 79.5 %; Platelet Count 165 X 10*3/uL (140-440); RBC 3.95 X 10*6/uL (4.10-5.20); RDW 13.3 % (11.5-14.5)
[2024-03-01 11:00] LABS: Basophils # (A) 0.02 X 10*3/uL (0.00-0.10)
--- NOTE | 2024-03-01 13:13 | P.PN ---
Subjective Progress Note Date: 03/01/24 This is a 79-year-old fe male who is status post left total hiparthroplasty with a direct anterior approach. This is postoperative day #1 And patient is seen and evaluated at bedside with Dr. Jorge Mahan. Patient reports pain in the operative leg, but states that she was able to work with physical therapy. Patient denies any fever/chills, chest pain, shortness breath, abdominal pain, numbness, weakness or tingling. Objective - Vital Signs Vital signs: Vital Signs Temp 97.7 F 03/01/24 06:57 Pulse 74 03/01/24 06:57 Resp 16 03/01/24 06:57 BP 111/68 03/01/24 06:57 Pulse Ox 96 03/01/24 08:46 FiO2 Intake & Output 02/29/24 03/01/24 03/01/24 18:59 06:59 18:59 Intake Total 1054 Output Total 250 Balance 804 Weight 78.1 kg Intake: IV 1054 Output: Estimated Blood Loss 250 Other: # Voids 1 2 - Exam Vital signs are stable. Patient is in no acute distress and is alert and oriented 3. Calf is soft and nontender to palpation. Dressing is clean, dry, and intact. Patient has full foot and ankle motion without pain or difficulty. Sensation intact. Neurovascular status and circulatory status are intact. - Labs CBC & Chem 7: 03/01/24 07:11 03/01/24 07:11 Labs: Abnormal Lab Results - Last 24 Hours (Table) 03/01/24 03/01/24 Range/Units 07:11 07:11 WBC 10.10 H (4.50-10.00) X 10*3/uL RBC 3.95 L (4.10-5.20) X 10*6/uL Hgb 10.6 L (12.0-15.0) g/dL Hct 33.6 L (37.2-46.3) % MCH 26.8 L (27.0-32.0) pg MCHC 31.5 L (32.0-37.0) g/dL Immature Gran # 0.05 H (0.00-0.04) X 10*3/uL Neutrophils # 8.03 H (1.80-7.70) X 10*3/uL Carbon Dioxide 20.6 L (21.6-31.8) mmol/L BUN/Creatinine Ratio 20.75 H (12.00-20.00) Ratio Glucose 112 H (70-110) mg/dL Assessment and Plan (1) Osteoarthritis of left hip Current Visit: Yes Status: Acute Code(s): M16.12 - UNILATERAL PRIMARY OSTEOARTHRITIS, LEFT HIP SNOMED Code(s): 400623939591398 (2) S/P total hip arthroplasty Current Visit: Yes Status: Acute Code(s): Z96.649 - PRESENCE OF UNSPECIFIED ARTIFICIAL HIP JOINT SNOMED Code(s): 761374901704 Plan: Continue routine postop care and pain control. Continue anticoagulation. Weightbearing as tolerated with a walker Leave dressing in place for 7 days. Appreciate input from internal medicine. Patient is interested in discharge to ECF because she will be alone often during the day and will require help with activities of daily living. Patient does live at home with her . Anticipate discharge home or to ECF in the next 24-48 hours.
[2024-03-01] MEDS: ONDANSETRON 4 MG/2 ML VIAL IVP PRN (17:27)
--- NOTE | 2024-03-01 17:37 | P.PN ---
Subjective Progress Note Date: 03/01/24 Hospital Course: Patient is a very pleasant 79-year-old female with a past medical history of hypertension, GERD, rheumatoid arthritis, osteoarthritis, and previous episodes of SVT. She is currently admitted under orthopedic surgery team status post left total hip arthroplasty secondary to severe osteoarthritis of left hip. Surgical procedure was completed by Dr. Mahan. We were consulted for medical management throughout patient's hospitalization. Physical exam: Patient was seen and fully evaluated at bedside this morning. She reports having mild to moderate postoperative pain in left hip and currently holding ice pack in place. She reports current pain medication regimen is successful managing her pain. She denies having any other needs or complaints at this time . Vital signs reviewed and stable. General: Nontoxic, no distress and appears stated age. Derm: Skin warm and dry, normal coloration for ethnicity. Head: Atraumatic, normocephalic and symmetric. Eyes: EOMs intact, no lid lag, and anicteric sclera Mouth: no lip lesions, mucus membranes moist Cardiovascular: regular rate and rhythm with normal S1S2, no murmur, positive posterior tibial pulses bilaterally, and cap refill < 2 seconds. Lungs: Respirations even, regular, and unlabored on room air. Lungs CTA bilaterally, no rhonchi, no rales, no wheezing, and no accessory muscle usage. Abdominal: soft, nontender to palpation, no guarding, no appreciable organomegaly Ext: Movement and sensation intact. No gross muscle atrophy, no edema, no contractures Neuro: Speech clear, face symmetrical and CN II-XII grossly intact with no noted focal neuro deficits Psych: Alert and oriented to person, place, time, and situation. Appropriate and pleasant affect. Assessment and Plan of Care: Acute postoperative blood loss anemia Stable and expected finding. Preoperative hemoglobin was 13.5 and postoperative hemoglobin is currently 10.6. No need for transfusion or further intervention at this time. We will continue to monitor hemoglobin levels closely with repeat morning CBC and transfuse if needed for hemoglobin less than 7. No signs of active bleeding noted. Status post left total hip arthroplasty Management per primary admitting orthopedic surgery team including pain management, DVT prophylaxis, wound/dressing management, weightbearing, and PT/OT. Patient currently on DVT prophylaxis with aspirin 81 mg twice daily. Hypertension History of SVT Continue daily medication regimen with diltiazem HCl 360 mg daily, losartan 50 mg daily, and Aldactone 25 mg daily. Anxiety Continue Zoloft 100 mg daily. GERD Continue Nexium 20 mg daily. Data and imaging reviewed Postoperative labs completed and reviewed. CBC showing mild leukocytosis with WBC count of 10.10 and acute postoperative blood loss anemia with hemoglobin of 10.6 with preoperative hemoglobin of 13.5. BMP showing mild hypocarbia with bicarb of 20.6 otherwise normal findings. Blood glucose was 112. Magnesium was slightly low at 1.7 and being replaced with Mag-Ox 400 mg p.o. x 1 dose. Vital signs reviewed and stable. Blood pressure 111/68, heart rate 74, respiratory rate 16, temp 97.7 F, and SpO2 of 96% on room air. Thank you for allowing us to participate in the care of this pleasant patient. Do not hesitate to contact us with questions. Someone can be reached from the [facility] hospitalist group all hours of the day at [phone] or via perfect serve. Patient was seen independently by Nurse Practitioner. This document was prepared using [employer] dictation software. Please allow for errors in claims coordinator while rare they do occur. Objective - Vital Signs Vital signs: Vital Signs Temp 97.7 F 03/01/24 06:57 Pulse 74 03/01/24 06:57 Resp 16 03/01/24 06:57 BP 111/68 03/01/24 06:57 Pulse Ox 96 03/01/24 08:46 FiO2 Intake & Output 02/29/24 03/01/24 03/01/24 18:59 06:59 18:59 Intake Total 1054 Output Total 250 Balance 804 Weight 78.1 kg Intake: IV 1054 Output: Estimated Blood Loss 250 Other: # Voids 1 2 - Labs CBC & Chem 7: 03/01/24 07:11 03/01/24 07:11
[2024-03-01] MEDS: MAGNESIUM OXIDE 400 MG TAB PO STA (17:52)
[2024-03-01 20:34] LABS: Appearance,Urine Clear (Clear); Bilirubin,Urine Negative (Negative); Blood,Urine Negative (Negative); Color,Urine Colorless; Glucose,Urine (UA) Negative (Negative); Ketones,Urine Negative (Negative); Leukocyte Esterase,Urine Negative (Negative); Nitrite,Urine Negative (Negative); PH, Urine 5.5 (5.0-8.0); Protein,Urine Negative (Negative); Specific Gravity,Urine 1.011 (1.001-1.035); Urobilinogen,Urine <2.0 mg/dL (<2.0)
[2024-03-02 07:03] VITALS: BP 104/67; PULSE 75; RESP 18; TEMP 98.2
--- NOTE | 2024-03-02 08:37 | P.PN ---
Subjective Progress Note Date: 03/02/24 This is a 79-year-old female who is status post left total hiparthroplasty with a direct anterior approach. This is postoperative day #2 and patient is seen and evaluated at bedside today. Patient states that she has been able to work with physical therapy and she denies any new complaints today. Patient denies any fever/chills, chest pain, shortness breath, abdominal pain, numbness, weakness or tingling. Objective - Vital Signs Vital signs: Vital Signs Temp 98.2 F 03/02/24 07:02 Pulse 75 03/02/24 07:02 Resp 18 03/02/24 07:02 BP 104/67 03/02/24 07:02 Pulse Ox 92 L 03/02/24 07:02 FiO2 Intake & Output 03/01/24 03/02/24 03/02/24 18:59 06:59 18:59 Intake Total 540 Balance 540 Intake: Oral 540 Other: # Voids 3 1 - Exam Vital signs are stable. Patient is in no acute distress and is alert and oriented 3. Calf is soft and nontender to palpation. Dressing is clean, dry, and intact. Patient has full foot and ankle motion without pain or difficulty. Sensation intact. Neurovascular status and circulatory status are intact. - Labs CBC & Chem 7: 03/01/24 07:11 03/01/24 07:11 Labs: Abnormal Lab Results - Last 24 Hours (Table) 03/01/24 03/01/24 Range/Units 07:11 07:11 WBC 10.10 H (4.50-10.00) X 10*3/uL RBC 3.95 L (4.10-5.20) X 10*6/uL Hgb 10.6 L (12.0-15.0) g/dL Hct 33.6 L (37.2-46.3) % MCH 26.8 L (27.0-32.0) pg MCHC 31.5 L (32.0-37.0) g/dL Immature Gran # 0.05 H (0.00-0.04) X 10*3/uL Neutrophils # 8.03 H (1.80-7.70) X 10*3/uL Carbon Dioxide 20.6 L (21.6-31.8) mmol/L BUN/Creatinine Ratio 20.75 H (12.00-20.00) Ratio Glucose 112 H (70-110) mg/dL Assessment and Plan (1) Osteoarthritis of left hip Current Visit: Yes Status: Acute Code(s): M16.12 - UNILATERAL PRIMARY OSTEOARTHRITIS, LEFT HIP SNOMED Code(s): 033697230841577 (2) S/P total hip arthroplasty Current Visit: Yes Status: Acute Code(s): Z96.649 - PRESENCE OF UNSPECIFIED ARTIFICIAL HIP JOINT SNOMED Code(s): 332481648637 Plan: Continue routine postop care and pain control. Continue anticoagulation. Weightbearing as tolerated with a walker Leave dressing in place for 7 days. Appreciate input from internal medicine. Patient is interested in discharge to ECF because she will be alone often during the day and will require help with activities of daily living. Patient does live at home with her . Anticipate discharge home or to ECF in the next 24-48 hours.
[2024-03-02] MEDS: KETOROLAC 15 MG/ML 1 ML VIAL IVP PRN (09:00)
--- NOTE | 2024-03-02 11:34 | P.DS ---
Providers Date of admission: 03/01/24 14:14 Expected date of discharge: 03/02/24 Attending physician: Jorge Mahan Consults: 02/29/24 08:46 Consult Physician Routine Consulting Provider: Kristal Carrizales Consult Reason/Comments: medical management Do you want consulting provider notified?: Yes Primary care physician: Stated None - Discharge Diagnosis(es) (1) Osteoarthritis of left hip Current Visit: Yes Status: Acute (2) S/P total hip arthroplasty Current Visit: Yes Status: Acute Hospital Course: This is a 79-year-old female with known history of degenerative arthritis of the left hip. The patient presented for evaluation as an outpatient. After discussion and consideration patient elects to proceed with total hip arthroplasty. The patient is seen preoperatively by Dr. Mahan and medically cleared for surgery by their primary care physician. Patient is admitted to [facility] on 02/29/2024 for total hip arthroplasty. The procedure is performed without complication or sequelae. The patient is doing well postoperatively. Labs and vital signs are stable on day of discharge. On day of discharge patient's hip incision is healing well. There is minimal erythema. There is no drainage noted at this time. There is minimal soft tissue swelling to the hip and thigh. Patient has full foot and ankle motion without difficulty or pain. Calf is soft and nontender to palpation. Neurova scular status to the left lower extremity is intact. Patient is discharged home in good condition. Please see [facility] rec for accurate list of home medications. Plan - Discharge Summary Discharge Rx Participant: No New Discharge Prescriptions: New Aspirin [Adult Low Dose Aspirin EC] 81 mg PO BID 30 Days #60 tab HYDROcodone/APAP 7.5-325MG [Switzer 7.5-325] 1 - 2 tab PO Q6H PRN #32 tab PRN Reason: Pain Sennosides [Senokot] 2 tab PO DAILY PRN #60 tablet PRN Reason: Constipation Continue Losartan Potassium 50 mg PO QAM Esomeprazole Magnesium [NexIUM] 20 mg PO QAM Spironolactone [Aldactone] 25 mg PO QAM Sertraline [Zoloft] 100 mg PO QAM Estradiol Cream [Estrace Cream 0.01%] 1 gm VAGINAL MOWEFR Cetirizine HCl [Zyrtec] 10 mg PO QAM dilTIAZem HCL [dilTIAZem HCL 24Hr ER (Tiazac)] 360 mg PO QAM Cranberry Fruit Extract [Cranberry] 2 tab PO BID Ketorolac [Toradol] 10 mg PO Q6HR PRN PRN Reason: Pain LORazepam 0.5 mg PO HS PRN PRN Reason: sleep Ondansetron [Zofran] 4 mg PO Q8HR PRN #21 tab PRN Reason: Nausea No Action Ondansetron [Zofran] 4 mg PO Q12HR PRN PRN Reason: Nausea HYDROcodone/APAP 7.5-325MG [Switzer 7.5-325] 1 - 2 tab PO Q6HR PRN #42 tab PRN Reason: Pain Discharge Medication List Cetirizine HCl [Zyrtec] 10 mg PO QAM 06/01/23 [History] Cranberry Fruit Extract [Cranberry] 2 tab PO BID 06/01/23 [History] Estradiol Cream [Estrace Cream 0.01%] 1 gm VAGINAL MOWEFR 06/01/23 [History] Losartan Potassium 50 mg PO QAM 06/01/23 [History] Ondansetron [Zofran] 4 mg PO Q12HR PRN 06/01/23 [History] Sertraline [Zoloft] 100 mg PO QAM 06/01/23 [History] Spironolactone [Aldactone] 25 mg PO QAM 06/01/23 [History] dilTIAZem HCL [dilTIAZem HCL 24Hr ER (Tiazac)] 360 mg PO QAM 06/01/23 [History] Esomeprazole Magnesium [NexIUM] 20 mg PO QAM 11/22/23 [History] Ketorolac [Toradol] 10 mg PO Q6HR PRN 11/22/23 [History] LORazepam 0.5 mg PO HS PRN 11/22/23 [History] HYDROcodone/APAP 7.5-325MG [Switzer 7.5-325] 1 - 2 tab PO Q6HR PRN #42 tab 11/26/23 [Rx] Ondansetron [Zofran] 4 mg PO Q8HR PRN #21 tab 11/26/23 [Rx] Aspirin [Adult Low Dose Aspirin EC] 81 mg PO BID 30 Days #60 tab 02/29/24 [Rx] HYDROcodone/APAP 7.5-325MG [Switzer 7.5-325] 1 - 2 tab PO Q6H PRN #32 tab 02/29/24 [Rx] Sennosides [Senokot] 2 tab PO DAILY PRN #60 tablet 02/29/24 [Rx] Follow up Appointment(s)/Referral(s): [facility] [NON-STAFF] - As Needed Jorge Mahan DO [Doctor of Osteopathic Medicine] - 03/20/24 2:30 pm Alivia Tariq MD [REFERRING] - 1 Week Activity/Diet/Wound Care/Special Instructions: Weightbearing as tolerated with walker. Leave dressing intact. Dressing may be removed by home care nurse or by patient in 7 days. Then change dressing twice daily until follow up. May shower with initial dressing intact and after removal. If dressing become saturated, please remove. Please take aspirin 81mg twice daily for 30 days to prevent blood clots. Recommend use of compression stockings daily until follow up to help prevent swelling and blood clots. May remove at night before sleeping. Please follow-up with [facility] in 2 weeks and call with any questions or concerns, . Discharge Disposition: HOME WITH HOME HEALTH SERVICES
--- NOTE | 2024-03-02 12:12 | P.PN ---
Subjective Progress Note Date: 03/02/24 Hospital Course: Patient is a very pleasant 79-year-old female with a past medical history of hypertension, GERD, rheumatoid arthritis, osteoarthritis, and previous episodes of SVT. She is currently admitted under orthopedic surgery team status post left total hip arthroplasty secondary to severe osteoarthritis of left hip. Surgical procedure was completed by Dr. Mahan. We were consulted for medical management throughout patient's hospitalization. Physical exam: Patient was seen and fully evaluated at bedside this morning. She reports feeling well at this time and currently denies having any complaints. Patient reports almost near resolution of postoperative pain since receiving Toradol this morning. Vital signs reviewed and stable. General: Nontoxic, no distress and appears stated age. Derm: Skin warm and dry, normal coloration for ethnicity. Head: Atraumatic, normocephalic and symmetric. Eyes: EOMs intact, no lid lag, and anicteric sclera Mouth: no lip lesions, mucus membranes moist Cardiovascular: regular rate and rhythm with normal S1S2, no murmur, positive posterior tibial pulses bilaterally, and cap refill < 2 seconds. Lungs: Respirations even, regular, and unlabored on room air. Lungs CTA bilaterally, no rhonchi, no rales, no wheezing, and no accessory muscle usage. Abdominal: soft, nontender to palpation, no guarding, no appreciable or ganomegaly Ext: Movement and sensation intact. No gross muscle atrophy, no edema, no contractures Neuro: Speech clear, face symmetrical and CN II-XII grossly intact with no noted focal neuro deficits Psych: Alert and oriented to person, place, time, and situation. Appropriate and pleasant affect. Assessment and Plan of Care: Acute postoperative blood loss anemia Stable and expected finding. Preoperative hemoglobin was 13.5 and postoperative hemoglobin is currently 10.6. No need for transfusion or further intervention at this time. We will continue to monitor hemoglobin levels closely with repeat morning CBC and transfuse if needed for hemoglobin less than 7. No signs of active bleeding noted. Status post left total hip arthroplasty Management per primary admitting orthopedic surgery team including pain management, DVT prophylaxis, wound/dressing management, weightbearing, and PT/OT. Patient currently on DVT prophylaxis with aspirin 81 mg twice daily. Hypertension History of SVT Continue daily medication regimen with diltiazem HCl 360 mg daily, losartan 50 mg daily, and Aldactone 25 mg daily. Anxiety Continue Zoloft 100 mg daily. GERD Continue Nexium 20 mg daily. Data and imaging reviewed: Postoperative labs reviewed. CBC showing mild leukocytosis with WBC count of 10.10 and acute postoperative blood loss anemia with hemoglobin of 10.6 with preoperative hemoglobin of 13.5. BMP showing mild hypocarbia with bicarb of 20.6 otherwise normal findings. Blood glucose was 112. Magnesium was slightly low at 1.7 and being replaced with Mag-Ox 400 mg p.o. x 1 dose. Vital signs reviewed and stable. Blood pressure 104/67, heart rate 75, respiratory rate 18, temp 98.2 F, and SpO2 of 92% on room air. Thank you for allowing us to participate in the care of this pleasant patient. Do not hesitate to contact us with questions. Someone can be reached from the [facility] hospitalist group all hours of the day at [phone] or via [employer]. Patient was seen independently by Nurse Practitioner. This document was prepared using [employer] dictation software. Please allow for errors in timber management professor while rare they do occur. Objective - Vital Signs Vital signs: Vital Signs Temp 98.2 F 03/02/24 07:02 Pulse 75 03/02/24 07:02 Resp 18 03/02/24 07:02 BP 104/67 03/02/24 07:02 Pulse Ox 92 L 03/02/24 07:02 FiO2 Intake & Output 03/01/24 03/02/24 03/02/24 18:59 06:59 18:59 Intake Total 540 Balance 540 Intake: Oral 540 Other: # Voids 3 1 - Labs CBC & Chem 7: 03/01/24 07:11 03/01/24 07:11 Labs: Abnormal Lab Results - Last 24 Hours (Table) 03/01/24 03/01/24 Range/Units 07:11 07:11 WBC 10.10 H (4.50-10.00) X 10*3/uL RBC 3.95 L (4.10-5.20) X 10*6/uL Hgb 10.6 L (12.0-15.0) g/dL Hct 33.6 L (37.2-46.3) % MCH 26.8 L (27.0-32.0) pg MCHC 31.5 L (32.0-37.0) g/dL Immature Gran # 0.05 H (0.00-0.04) X 10*3/uL Neutrophils # 8.03 H (1.80-7.70) X 10*3/uL Carbon Dioxide 20.6 L (21.6-31.8) mmol/L BUN/Creatinine Ratio 20.75 H (12.00-20.00) Ratio Glucose 112 H (70-110) mg/dL
== END 2024-03-02 13:07 | disposition home health service (06) ==
LOC: OR 05:40 → 4SSUR 08:36 → OR 03-01 14:14 → 4SSUR 03-01 14:14
PROVIDERS: ADMIT Orthopaedic Surgery; ATTEND Orthopaedic Surgery
DX: M16.12 Unilateral primary osteoarthritis, left hip (principal); M25.752 Osteophyte, left hip; D62 Acute posthemorrhagic anemia; I12.9 Hypertensive chronic kidney disease with stage 1 through stage 4 chronic kidney disease, or unspecified chronic kidney disease; N18.30 Chronic kidney disease, stage 3 unspecified; M06.9 Rheumatoid arthritis, unspecified; K21.9 Gastro-esophageal reflux disease without esophagitis; I47.10 Supraventricular tachycardia, unspecified; F41.9 Anxiety disorder, unspecified; I25.10 Atherosclerotic heart disease of native coronary artery without angina pectoris; G43.909 Migraine, unspecified, not intractable, without status migrainosus; E78.5 Hyperlipidemia, unspecified; Z79.899 Other long term (current) drug therapy; Z88.6 Allergy status to analgesic agent; Z88.1 Allergy status to other antibiotic agents; Z88.2 Allergy status to sulfonamides; Z88.8 Allergy status to other drugs, medicaments and biological substances; Z87.891 Personal history of nicotine dependence
CPT/HCPCS: 94760; 97116; 97162; 97166; 64447; 80048; 83735; 85025; 81003; 73501; 27130; G0378 ×2; C1776; J2250; J1100; J2405 ×2; J3010; J2795; J1885; J1170 ×2; J0736 ×3